=== PATIENT | male | born 1980 | race Caucasian/White ===

== ENCOUNTER 2023-01-07 09:26 | Emergency (ER) | payer OTHER, SELFPAY ==
--- NOTE | ~2023-01-07 | XR_ITS ---
EXAMINATION: XR chest 1V portable DATE: 01/07/2023 09:57 INDICATION: Shortness of breath and cough TECHNIQUE: frontal view of the chest was obtained. COMPARISON: None FINDINGS: The lungs are clear with no focal airspace opacities, pulmonary edema, pleural effusion or pneumothor ax. The cardiomediastinal silhouette is normal. Visualized bones and soft tissues are unremarkable. IMPRESSION: 1. Normal chest radiograph. Reviewed, dictated and finalized at location A. T SPEC IMPRESSION: 1. Normal chest radiograph.
[2023-01-07 09:30] VITALS: BP 175/89; PULSE 85; RESP 16; TEMP 36.6; O2SAT 97
--- NOTE | 2023-01-07 09:38 | ED.URI ---
HPI - URI/Sore Throat General Chief Complaint: Upper Respiratory Infection Stated Complaint: upper resp coughing Time Seen by Provider: 01/07/23 09:33 Source: patient and family Mode of arrival: ambulatory Limitations: no limitations History of Present Illness HPI Narrative: this is a 42-year-old male who presents with cough congestion with shortness of breath and some scattered wheezes, no fever chills no nausea vomiting does have some left-sided mid axillary rib pain with deep inspiration, with no substernal chest pain does have a cough that is productive yellow sputum no abdominal pain no flank pain no nausea vomiting no diarrhea constipation. Patient is a smoker. MD elicited complaint: cough and nasal congestion Onset (ago): week(s) Consistency: constant Severity: moderate Pain scale (0-10): 6 Description of mucous: yellow Exacerbating factors: nothing Relieving factors: nothing Related Data Allergies Allergy/AdvReac Type Severity Reaction Status Date / Time aspirin Allergy Mild Verified 03/08/10 14:25 Review of Systems Review of Systems: All systems reviewed & are unremarkable except as noted in HPI and below PMFSH Past Medical History Medical History Tobacco use Exam Const: General: no acute distress Nutritional Appearance: well nourished Orientation/consciousness: patient oriented x3 Limitations: no limitations HENMT: Head: normal to inspection Eyes: Conjunctivae: conjunctivae normal Neck: Neck: normal visual inspection and no lymphadenopathy Chest: Chest palpation & inspection: normal inspection of the chest Resp: Effort & Inspection: normal respiratory effort Auscultation: wheezes Cardio: Rate: regular rate Rhythm: regular rhythm GI: GI Palp: Yes Soft to palpation Auscultation: normal bowel sounds Psych: Affect: normal affect Course Course Emergency Course: patient received breathing treatment for his cough and wheezing, has left-sided rib pain with deep inspiration and given allergy to aspirin will give him tramadol p.o., x-ray performed and reviewed, patient also had COVID influenza and RSV Which were all negative. Chest x-ray shows no acute abnormalities and will send an inhaler and antibiotic to patient's pharmacy. Vital Signs Vital signs: Vital Signs Temperature 36.6 C 01/07/23 09:30 Pulse Rate 85 01/07/23 09:30 Respiratory Rate 16 01/07/23 09:30 Blood Pressure 175/89 H 01/07/23 09:30 Pulse Oximetry 97 11/09/23 09:30 Oxygen Delivery Room Air 01/07/23 09:30 Temperature 36.6 C 01/07/23 09:30 Pulse Rate 85 01/07/23 09:30 Respiratory Rate 16 01/07/23 09:30 Blood Pressure 175/89 H 01/07/23 09:30 Pulse Oximetry 97 01/07/23 09:30 Oxygen Delivery Room Air 01/07/23 09:30 Critical Care Time Critical Care Time Critical Care Time: No Discharge Plan Discharge Clinical Impression: Upper respiratory infection Qualifiers: URI type: unspecified URI Qualified Code(s): J06.9 - Acute upper respiratory infection, unspecified Patient Disposition: Home, Self-Care Condition: Stable Instructions: Antibiotic Form, Upper Respiratory Infection (ED) Additional Instructions: advised to take medicine as prescribed and follow-up with primary care physician within 1 to 2 weeks if symptoms persist or worsen. Prescriptions: New azithromycin [Zithromax Z-Leonel] 250 mg tablet See Rx Instructions .ROUTE .COMPLEX Qty: 6 0RF Rx Instructions: For 250 mg dose pack: take 500 mg today (day 1), then 250 mg for 4 days (days 2-5) ProAir RespiClick 90 mcg/actuation aerosol powdr breath activated 2 inh inhalation QID PRN (Reason: shortness of breath or wheezing) Qty: 1 0RF Follow-up/Referrals: UNKNOWN,DOCTOR [Primary Care Provider] - Time of Disposition: 10:34
[2023-01-07 09:39] VITALS: O2SAT 97
--- NOTE | 2023-01-07 09:48 | ECG_ITS ---
Measurements Intervals [place] Rate: 87 P: 80 [place]: 129 QRS: 80 QRSD: 79 T: 57 QT: 347 QTc: 418 Interpretive Statements SINUS RHYTHM POSSIBLE RIGHT ATRIAL ENLARGEMENT BORDERLINE ST ABNORMALITY- INFERIOR LEADS BORDERLINE ECG NO PREVIOUS ECG AVAILABLE FOR COMPARISON Electronically Signed On 01-07-2023 9:57:02 MINE SAFETY ENGINEER by Roman Robin D.O.
[2023-01-07] MEDS: traMADol HCL (*CRX) 50 MG TABLET PO (09:50)
[2023-01-07] MEDS: IPRATROPIUM 0.5 MG/ALBUTEROL SULFATE 2.5 MG AMPUL.NEB 3 ML INHALATION (09:53)
[2023-01-07 09:55] VITALS: PULSE 85; RESP 18; O2SAT 97
[2023-01-07 10:05] VITALS: PULSE 85; RESP 18; O2SAT 97
[2023-01-07 10:23] LABS: Influenza A QL RT-PCR Negative (Negative); Influenza B QL RT-PCR Negative (Negative); SARS-CoV-2 RNA PCR Negative (Negative)
[2023-01-07 10:27] LABS: RSV RNA, RT-PCR Negative (Negative)
[2023-01-07 10:35] VITALS: BP 155/89; PULSE 91; RESP 18; TEMP 36.5; O2SAT 97
== END 2023-01-07 10:40 | disposition home or self-care (01) ==
PROVIDERS: Emergency Provider Emergency Medicine
DX: J06.9 Acute upper respiratory infection, unspecified (principal); Z20.822 Contact with and (suspected) exposure to COVID-19
CPT/HCPCS: 71045; 87637; 93005; 94640; 99283; A9270

== ENCOUNTER 2023-02-26 16:33 | Emergency (ER) | payer OTHER, SELFPAY ==
[2023-02-26 16:33] VITALS: BP 176/98; PULSE 88; RESP 16; TEMP 36.9; O2SAT 97
--- NOTE | 2023-02-26 17:06 | ED.GENADULT ---
HPI - General Adult General Chief complaint: Extremity Injury, Upper Stated complaint: left arm pain/numbness x 1 month Time Seen by Provider: 02/26/23 16:59 History of Present Illness HPI narrative: Wood is a 42M with a PMH of tobacco abuse that presented to the ED with left arm and neck pain. It started 6 weeks ago. There was no fall or trauma. He feels like his whole arm hurts or goes numb. There is no weakness or paralysis. Related Data Allergies Allergy/AdvReac Type Severity Reaction Status Date / Time aspirin Allergy Mild Unknown Verified 02/26/23 16:59 Review of Systems Review of Systems: All systems reviewed & are unremarkable except as noted in HPI and below PMFSH Past Medical History Medical History Tobacco use Exam Const: General: cooperative, healthy appearing, comfortable, no acute distress, well developed, alert, awake and Physically active Orientation/consciousness: oriented to person, oriented to place and oriented to time HENMT: Head: normal to inspection, normocephalic and atraumatic Ears: hearing grossly normal bilaterally and external ears normal Face/Nose/Sinus: Normal external nose present Eyes: General: appearance normal, both eyes and all related structures Periorbital: periorbital findings normal Sclera: sclerae normal Pupils: Equal, round and reactive pupils present Neck: Neck: normal visual inspection Chest: Chest palpation & inspection: normal inspection of the chest Resp: Effort & Inspection: normal respiratory effort, able to speak in complete sentences and no respiratory distress Cardio: Jugular venous distension: no JVD Skin: General skin exam: normal color and no rashes or lesions noted Neuro: General: oriented to person, oriented to place and oriented to time Cranial nerves: Yes Equal, round and reactive pupils present Extrem: General: normal to inspection Other: Full ROM in the left shoulder. 5/5 strength throughout the left upper extremity +Spurling maneuver Psych: Mental Status: mental status grossly normal Course Course Emergency Course: -Given prednisone and a Toradol shot. Vital Signs Vital signs: Vital Signs Temperature 98.5 F 02/26/23 16:33 Pulse Rate 88 02/26/23 16:33 Respiratory Rate 16 02/26/23 16:33 Blood Pressure 176/98 H 02/26/23 16:33 Pulse Oximetry 97 02/26/23 16:33 Oxygen Delivery Room Air 02/26/23 16:33 Temperature 98.5 F 02/26/23 16:33 Pulse Rate 88 02/26/23 16:33 Respiratory Rate 16 02/26/23 16:33 Blood Pressure 176/98 H 02/26/23 16:33 Pulse Oximetry 97 02/26/23 16:33 Oxygen Delivery Room Air 02/26/23 16:33 Medical Decision Making Vital Signs Vital Signs: Vital Signs Temperature 98.5 F 02/26/23 16:33 Pulse Rate 88 02/26/23 16:33 Respiratory Rate 16 02/26/23 16:33 Blood Pressure 176/98 H 02/26/23 16:33 Pulse Oximetry 97 02/26/23 16:33 Oxygen Delivery Room Air 02/26/23 16:33 Temperature 98.5 F 02/26/23 16:33 Pulse Rate 88 02/26/23 16:33 Respiratory Rate 16 02/26/23 16:33 Blood Pressure 176/98 H 02/26/23 16:33 Pulse Oximetry 97 02/26/23 16:33 Oxygen Delivery Room Air 02/26/23 16:33 Discharge Plan Discharge Clinical Impression: Cervical radiculopathy Patient Disposition: Home, Self-Care Condition: Stable Instructions: Acute Neck Pain (ED) Prescriptions: New prednisone 50 mg tablet 50 mg PO DAILY Qty: 5 0RF Follow-up/Referrals: UNKNOWN,DOCTOR [Primary Care Provider] -
[2023-02-26] MEDS: KETOROLAC 30 MG/ML VIAL (*BKC) IM (17:31)
[2023-02-26] MEDS: predniSONE 40 MG, predniSONE 10 MG 50 MG PO (17:32)
[2023-02-26 17:45] VITALS: BP 176/98; PULSE 88; RESP 16; TEMP 36.9; O2SAT 97
== END 2023-02-26 17:45 | disposition home or self-care (01) ==
PROVIDERS: Emergency Provider Family Medicine
DX: M54.12 Radiculopathy, cervical region (principal)
CPT/HCPCS: 96372; 99283; J1885; J7512

== ENCOUNTER 2023-03-01 09:10 | Emergency (ER) | payer OTHER, SELFPAY ==
--- NOTE | ~2023-03-01 | XR_ITS ---
EXAMINATION: XR knee RT 3V DATE: 03/01/2023 09:45 INDICATION: Right knee pain. TECHNIQUE: 3 views of right knee were obtained. COMPARISON: None. FINDINGS: Bone alignment is normal. No fracture. Joint spaces are normal. No knee joint effusion. IMPRESSION: 1. Normal right knee. Reviewed, dictated and finalized at location A. RETTE FILTER INSPECTOR IMPRESSION: 1. Normal right knee.
--- NOTE | ~2023-03-01 | XR_ITS ---
EXAMINATION: XR knee LT 3V DATE: 03/01/2023 09:46 INDICATION: Left knee pain. TECHNIQUE: 3 views of left knee were obtained. COMPARISON: None. FINDINGS: Bone alignment is normal. No fracture. Joint spaces are normal. No knee joint effusion. IMPRESSION: 1. Normal left knee. Reviewed, dictated and finalized at location A. PULLER IMPRESSION: 1. Normal left knee.
[2023-03-01 09:10] VITALS: BP 166/98; PULSE 87; RESP 12; TEMP 36.1; O2SAT 100
--- NOTE | 2023-03-01 09:33 | ED.LOWEXIN ---
HPI - Extremity Injury (Lower) General Chief Complaint: Extremity Injury, Lower Stated Complaint: R & L knee pain Time Seen by Provider: 03/01/23 09:28 Source: patient Mode of arrival: ambulatory Limitations: no limitations History of Present Illness HPI Narrative: Patient is a 42-year-old male with bilateral knee pains. He woke up this morning with pain. Pain is sharp and only in the knees bilaterally. No injuries. No calf pain. Patient is able to take ibuprofen. Onset (ago): hour(s) (3) Injury: Bilateral: knee Place: home Severity: moderate Severity scale (1-10): 5 Relieving factors: nothing Exacerbating factors: nothing Context: walking Associated symptoms: able to partially bear weight and ambulatory Other symptoms: none Treatments prior to arrival: NSAIDS Related Data Allergies Allergy/AdvReac Type Severity Reaction Status Date / Time aspirin Allergy Mild Unknown Verified 03/01/23 09:17 Review of Systems Review of Systems: All systems reviewed & are unremarkable except as noted in HPI and below Constitutional: Constitutional: Reports no additional constitutional complaints Eyes: Eyes: Reports no additional eye complaints ENT: Reports system reviewed and no additional complaints, except as documented Cardiovascular: Cardiovascular: Reports no additional cardiovascular complaints Respiratory: Respiratory: Reports no additional respiratory complaints Gastrointestinal: Gastrointestinal: Reports no additional gastrointestinal complaints Genitourinary: Genitourinary: Reports no additional male genitourinary complaints Musculoskeletal: Musculoskeletal: Reports no additional musculoskeletal complaints Integumentary/Breasts: Skin/Breast: Reports system reviewed and no additional complaints, except as docu Neurologic: Reports system reviewed and no additional complaints, except as documented Psychiatric: Psychiatric: Reports no additional psychiatric complaints Endocrine: Endocrine: Reports no additional endocrine complaints Hematologic/Lymphatic: Hematologic/Lymphatic: Reports no additional hematologic/lymphatic complaints Allergic/Immunologic: Allergic/Immunologic: Reports no additional allergic/immunologic complaints PMFSH Past Medical History Medical History Tobacco use Exam Const: General: healthy appearing Nutritional Appearance: well nourished Orientation/consciousness: patient oriented x3 HENMT: Head: normal to inspection Ears: external ears normal Face/Nose/Sinus: Normal external nose present Eyes: Conjunctivae: conjunctivae normal Pupils: Equal, round and reactive pupils present EOM: EOMs intact bilaterally Neck: Neck: normal visual inspection Chest: Chest palpation & inspection: normal inspection of the chest Resp: Effort & Inspection: normal respiratory effort and not labored Auscultation: clear to auscultation bilaterally and no crackles Cardio: Rate: regular rate Rhythm: regular rhythm Heart sounds: no murmurs GI: Inspection: non-distended GI Palp: Yes Soft to palpation, No Tenderness to palpation present (GI) and No Guarding due to palpation present (GI) Auscultation: normal bowel sounds : General: Yes bladder normal to palpation Back/Spine/Pelvis: Back: no CVA tenderness Skin: General skin exam: normal color Rashes: no rashes Wounds: no wounds Neuro: General: patient oriented x3 Cranial nerves: Yes Nystagmus not present Speech: normal speech Extrem: General: normal to inspection, no clubbing, cyanosis or edema and no pedal edema Psych: Mental Status: mental status grossly normal Affect: normal affect Attitude: cooperative Course Vital Signs Vital signs: Vital Signs Temperature 36.1 C L 03/01/23 09:10 Pulse Rate 87 03/01/23 09:10 Respiratory Rate 12 03/01/23 09:10 Blood Pressure 166/98 H 03/01/23 09:10 Pulse Oximetry 100 03/01/23 09:10 Oxygen Delivery Room Air 03/01/23 09:10 Temperature 36.1 C L 03/01/23 09:10 Pul
[2023-03-01] MEDS: KETOROLAC (*BKC) 60 MG/2 ML VIAL IM (09:40)
== END 2023-03-01 10:04 | disposition home or self-care (01) ==
PROVIDERS: Emergency Provider Emergency Medicine
DX: M25.561 Pain in right knee (principal); M25.562 Pain in left knee
CPT/HCPCS: 73562; 96372; 99284; J1885

== ENCOUNTER 2023-03-30 10:04 | Outpatient (CLI) | payer OTHER, SELFPAY ==
--- NOTE | ~2023-03-30 | XR_ITS ---
Cervical Spine: AP, lateral, open-mouth views Clinical History: Pain Findings: There is reversal of the normal cervical lordosis. The vertebral bodies and posterior [place] ents appear intact. There is mild degenerative disc narrowing at C6-C7.. Pre-vertebral soft tissues a re unremarkable. Impression: Mild reversal of the normal cervical lordosis. Mild degenerative disc narrowing at C6-C7. Reviewed, dictated and finalized at [facility]. IN EXTERMINATOR Impression: Mild reversal of the normal cervical lordosis. Mild degenerative disc narrowing at C6-C7.
[2023-03-30 10:17] LABS: Basophils Absolute Auto 0.06 K/mm3 (0.00-0.10); Basophils Percent Auto 0.5 % (0.0-1.0); Eosinophils Absolute Auto 0.36 K/mm3 (0.02-0.50); Eosinophils Percent Auto 3.2 % (1.0-6.0); Hematocrit 46.5 % (40.0-54.0); Hemoglobin 15.3 g/dL (14.0-18.0); Immature Granulocyte Absolute 0.05 K/mm3 (0.00-0.00); Immature Granulocyte Percent A 0.4 % (0.0-0.0); Lymphocytes Absolute Auto 3.58 K/mm3 (1.10-4.50); Lymphocytes Percent Auto 31.9 % (18.0-42.0); Mean Corpuscular HGB Conc 32.9 g/dL (32.0-36.0); Mean Corpuscular Hemoglobin 30.2 pg (27.0-31.0); Mean Corpuscular Volume 91.7 fL (78.0-102.0); Monocytes Absolute Auto 0.75 K/mm3 (0.10-0.90); Monocytes Percent Auto 6.7 % (2.0-11.0); Neutrophils Absolute Auto 6.4 K/mm3 (1.7-7.2); Neutrophils Percent Auto 57.3 % (50.0-70.0); Platelet Count Result 278 K/mm3 (150-420); Red Blood Count 5.07 M/mm3 (4.70-6.10); Red Cell Distribution Width 12.8 % (11.6-14.4); White Blood Count 11.2 K/mm3 (4.8-10.8)
[2023-03-30 11:12] LABS: Alanine Aminotransferase 31 U/L (16-63); Albumin Level 3.5 g/dL (3.4-5.0); Alkaline Phosphatase 74 U/L (46-116); Anion Gap 7 mmol/L (8-16); Bilirubin,Total 0.2 mg/dL (0.00-1.00); Blood Urea Nitrogen 16 mg/dL (7-18); Calcium 8.3 mg/dL (8.5-10.1); Carbon Dioxide 30 mmol/L (21-32); Chloride 104 mmol/L (98-108); Cholesterol 182 mg/dL (0-200); Estimated Glomerular Filt Rate > 60; Glucose 86 mg/dL (70-99); HDL Direct 53 mg/dL (40-60); LDL Cholesterol Calculated 103 mg/dL (<130); Osmolality Calculated 292 mOsm/kg (285-295); Potassium 4.9 mmol/L (3.5-5.1); Sodium 141 mmol/L (136-145); Total Protein 6.5 g/dL (6.4-8.2); Triglycerides 129 mg/dL (0-150)
[2023-03-30 11:21] LABS: Aspartate Amino Transferase 22 U/L (15-37)
== END 2023-03-30 10:05 | disposition home or self-care (01) ==
LOC: CHSLAB 10:06
PROVIDERS: PCP Family Medicine; Visit Provider Family Medicine
DX: Z00.00 Encounter for general adult medical examination without abnormal findings (principal); M54.12 Radiculopathy, cervical region; M48.02 Spinal stenosis, cervical region
CPT/HCPCS: 36415; 72040; 80053; 80061; 85025

== ENCOUNTER 2023-04-12 03:22 | Inpatient (IN) | payer OTHER, SELFPAY ==
[2023-04-12] VITALS (31 sets, daily range): BP systolic 117–179; BP diastolic 5–107; PULSE 61–132; RESP 15–26; TEMP 35.7–37.7; O2SAT 94–100; BMI 25.9
--- NOTE | 2023-04-12 | ECHO_ITS ---
Patient Info Name: Wood Lainez Age: 43 years : 1980 Gender: Male Ht: 67 in Wt: 177 lbs BSA: 1.97 m2 HR: 71 bpm BP: 145 / 76 mmHg Heart Rhythm: Sinus Rhythm Technical Quality: Fair Exam Date: 04/12/2023 10:25 AM Exam Location: Echo Lab Patient Status: Inpatient Admit Date: 04/12/2023 Staff Ordering Physician: [facility] Erecting Crane Operator: Meagan Sorto RDCS Attending Provider: Dale [facility] Referring Physician: Stuart Callahan MD; Exam Type: CA echo dop color flow w con Study Info Indications - STEMI Complete two-dimensional, color flow and Doppler transthoracic echocardiogram is performed with contrast to opacify the left ventricle and to improve the deliniation of the left ventricle endocardial borders. Contrast/Agitated Saline Contrast/Ag. Saline: Definity Amount: 2.00 ml Administered By: Meagan Sorto RDCS Existing IV Access: Yes IV Access Condition: patent with no signs of infiltration Summary 1. Patient intubated, definity contrast used to improve exam quality. 2. Normal left ventricular size and overall systolic function with ejection fraction 55-60%. 3. Akinesis of the inferior segment. 4. Normal appearing aortic and mitral valve. 5. No pericardial effusion. Left Ventricle Left ventricular chamber dimension is normal. Left ventricular systolic function is normal, estimated at 55-60%. The left ventricular diastolic function is grade I diastolic dysfunction. Right Ventricle Right ventricular chamber dimension is normal. Left Atria Left atrial chamber dimension is normal. Right Atria Right atrial chamber dimension is normal. Aortic Valve The aortic valve is normal. Pulmonic Valve The pulmonic valve is not well visualized. Mitral Valve The mitral valve has normal leaflets. Tricuspid Valve The tricuspid valve leaflets are normal. Pericardium/Pleural The pericardium appears normal. Aorta The aortic root size at the sinus of Valsalva is normal. Left Ventricular Outflow Tract Name Value Normal LVOT 2D LVOT Diameter 1.97 cm LVOT Doppler LVOT Peak Gradient 2 mmHg LVOT Mean Gradient 1 mmHg LVOT VTI 13.41 cm LVOT VTI/AV VTI Ratio 0.72 LVOT Stroke Volume 41.01 ml LVOT CO 3.59 l/min LVOT CI 1.83 L/min/m2 Pulmonic Valve Name Value Normal RVOT Doppler RVOT Peak Gradient 3 mmHg PV Doppler PV Peak Gradient 4 mmHg Mitral Valve Name Value Normal
--- NOTE | ~2023-04-12 | XR_ITS ---
Portable chest x-ray Comparison: 04/13/2023 Clinical History: Intubation Findings: There is minimal haziness right lung base, nonspecific. Left lung clear. Support tubes hav e been removed since prior exam. Cardiomediastinal silhouette is stable. Bones and soft tissues are unremarkable. Impression: Minimal haziness right lung base, nonspecific. Correlate for minimal pulmonary edema/atelectasis, or possibly developing pneumonia. Reviewed, dictated and finalized at location . UAGE ARTS TEACHER Impression: Minimal haziness right lung base, nonspecific. Correlate for minimal pulmonary edema/atelectasis, or possibly developing pneumonia.
--- NOTE | ~2023-04-12 | XR_ITS ---
Portable chest x-ray Comparison: 04/12/2023 Clinical History: Respiratory failure Findings: Endotracheal tube and NG tube are in place. Lungs remain clear. Cardiomediastinal silhoue tte is stable. Bones and soft tissues are unremarkable. Impression: Clear lungs. Support tubes, as above. Reviewed, dictated and finalized at location . ICAL VETERINARIAN Impression: Clear lungs. Support tubes, as above.
--- NOTE | ~2023-04-12 | XR_ITS ---
Portable chest x-ray Comparison: 04/14/2023 Clinical History: Respiratory failure Findings: Lungs are clear, without focal consolidation or pleural effusion. Cardiomediastinal silho uette is stable. Bones and soft tissues are unremarkable. Impression: Clear lungs. Reviewed, dictated and finalized at [facility]. TENANCE SHOP LABORER Impression: Clear lungs.
--- NOTE | ~2023-04-12 | XR_ITS ---
Portable chest x-ray Comparison: 01/07/2023 Clinical History: Chest pain Findings: Lungs are clear, without focal consolidation or pleural effusion. Cardiomediastinal silho uette is stable. Bones and soft tissues are unremarkable. Impression: Normal chest. Reviewed, dictated and finalized at [facility]. AREA SUPERVISOR Impression: Normal chest.
--- NOTE | ~2023-04-12 | XR_ITS ---
Supine and upright views of the abdomen Clinical history: NG tube placement Findings: NG tube in place, tip in the stomach near the gastric antrum. Cholecystectomy clips are pre sent. Bowel gas pattern is nonspecific. No evidence for obstruction or free air. No abnormal mass les ion or calcification is seen. Osseous structures are intact. Impression: NG tube in place, as above. Reviewed, dictated and finalized at location . ANTY COORDINATOR Impression: NG tube in place, as above.
--- NOTE | ~2023-04-12 | XR_ITS ---
Portable chest x-ray Comparison: 04/12/2023 at 4:04 AM Clinical History: Tube placement Findings: Endotracheal tube and NG tube are in satisfactory positions. Lungs are clear, without foca l consolidation or pleural effusion. Cardiomediastinal silhouette is stable. Bones and soft tissues are unremarkable. Impression: Support tubes, as above. Clear lungs. Reviewed, dictated and finalized at location M. TESTER Impression: Support tubes, as above. Clear lungs.
--- NOTE | 2023-04-12 03:06 | ECG_ITS ---
Measurements Intervals [place] Rate: 55 P: 72 [place]: 158 QRS: 74 QRSD: 85 T: 101 QT: 457 QTc: 440 Interpretive Statements SINUS BRADYCARDIA INFERIOR ST SEGMENT ELEVATIONS CONSISTENT WITH INJURY PATTERN ABNORMAL ECG COMPARED TO ECG 01/07/2023 09:47:51 SINUS BRADYCARDIA NOW PRESENT T-WAVE ABNORMALITY NOW PRESENT Electronically Signed On 04-12-2023 8:42:41 MACHINE TOOL ELECTRICIAN by Jose Jackson M.D.
--- NOTE | 2023-04-12 03:35 | ECG_ITS ---
Measurements Intervals [place] Rate: 47 P: 77 AL: 154 QRS: 83 QRSD: 88 T: 109 QT: 491 QTc: 437 Interpretive Statements SINUS BRADYCARDIA ST AND T ABNORMALITY COMPATIBLE WITH ACUTE INFERIOR POSTERIOR CURRENT OF INJURY ABNORMAL ECG COMPARED TO ECG 04/12/2023 03:48:09 NO SIGNIFICANT CHANGE Electronically Signed On 04-12-2023 15:03:37 FACULTY I ON CALL MEDICAL ASSISTANT by Leonel Alcazar M.D.
--- NOTE | 2023-04-12 03:37 | ECG_ITS ---
Measurements Intervals [place] Rate: 60 P: 72 PA: 159 QRS: 74 QRSD: 81 T: 103 QT: 464 QTc: 466 Interpretive Statements SINUS RHYTHM WITH SINUS ARRHYTHMIA ST ELEVATION, CONSIDER INFERIOR INJURY [MARKED ST ELEVATION W/O NORMALLY INFLECTED T- WAVE IN II/aVF] ACUTE CT ABNORMAL ECG COMPARED TO ECG 04/12/2023 03:37:00 NO DIFFERENCE Electronically Signed On 04-12-2023 15:03:09 LABORER STORES by Leonel Alcazar M.D.
[2023-04-12 03:45] LABS: Basophils Absolute Auto 0.1 K/mm3 (0.0-0.1); Basophils Percent Auto 0.8 % (0.2-1.2); Eosinophils Absolute Auto 0.3 K/mm3 (0-0.3); Eosinophils Percent Auto 2.7 % (0-4.4); Hematocrit 44.6 % (42.0-52.0); Hemoglobin 14.5 g/dL (14.0-18.0); Immature Granulocyte Absolute 0.03 K/mm3 (0.00-0.031); Immature Granulocyte Percent A 0.3 % (0-0.5); Lymphocytes Absolute Auto 3.92 K/mm3 (0.9-3.2); Lymphocytes Percent Auto 37.1 % (18.3-44.2); Mean Corpuscular HGB Conc 32.5 g/dl (32-36); Mean Corpuscular Hemoglobin 30.2 pg (26-34); Mean Corpuscular Volume 92.9 fl (80-100); Mean Platelet Volume 10.5 fl (7.4-10.4); Monocytes Absolute Auto 0.7 K/mm3 (0.1-0.6); Monocytes Percent Auto 6.8 % (2.6-8.5); Neutrophils Absolute Auto 5.5 K/mm3 (1.3-6.7); Neutrophils Percent Auto 52.3 % (45.5-73.1); Platelet Count Result 234 k/mm3 (150-375); Red Cell Distribution Width 12.9 % (11.5-14.5); White Blood Count 10.6 K/mm3 (4.5-10.0)
--- NOTE | 2023-04-12 03:53 | ECG_ITS ---
Measurements Intervals [place] Rate: 63 P: 65 [place]: 157 QRS: 69 QRSD: 82 T: 98 QT: 453 QTc: 465 Interpretive Statements POSTERIOR/15 LEAD ECG PERFORMED NORMAL SINUS RHYTHM ST AND T ABNORMALITY CONSISTENT WITH ACUTE INFERO POSTERIOR INJURY PATTERN ABNORMAL ECG COMPARED TO ECG 04/12/2023 03:25:51 TRACING IS CONTINUING TO BE COMPATIBLE WITH ACUTE ST-ELEVATION OR Electronically Signed On 04-12-2023 15:02:48 AIRCRAFT MAGNETO MECHANIC by Leonel Alcazar M.D.
[2023-04-12 03:55] LABS: Alanine Aminotransferase 22 U/L (6-50); Albumin Level 3.6 g/dL (3.5-5.1); Alkaline Phosphatase 69 U/L (38-126); Anion Gap 7 mmol/L (8-16); Aspartate Amino Transferase 27 U/L (17-59); Bilirubin,Total 0.3 mg/dL (0.2-1.3); Blood Urea Nitrogen 22 mg/dL (9-20); Carbon Dioxide 24 mmol/L (22-30); Chloride 106 mmol/L (98-107); Cholesterol 134 mg/dL (0-200); Estimated CRCL calculation 71 ml/min; Estimated Glomerular Filt Rate > 60; Glucose 164 mg/dL (65-110); HDL Direct 39 mg/dL; Potassium 3.7 mmol/L (3.4-5.0); Prothrombin Time 13.4 Seconds (11.1-14.7); Sodium 137 mmol/L (137-145); Triglycerides 131 mg/dL (<150)
[2023-04-12 03:56] LABS: Partial Thromboplastin Time 26.4 SECONDS (22.3-36.8)
[2023-04-12] MEDS: LORazepam INJ (*CRX) 2 MG/ML VIAL 1 MG IV PUSH (04:05)
[2023-04-12 04:06] LABS: LDL Cholesterol Direct 84 mg/dL
--- NOTE | 2023-04-12 04:24 | ECG_ITS ---
Measurements Intervals [place] Rate: 53 P: 77 [place]: 155 QRS: 81 QRSD: 84 T: 107 QT: 487 QTc: 460 Interpretive Statements SINUS BRADYCARDIA ST ELEVATION, CONSIDER INFERIOR INJURY [MARKED ST ELEVATION W/O NORMALLY INFLECTED T- WAVE IN II/aVF] ACUTE TX ABNORMAL ECG COMPARED TO ECG 04/12/2023 03:25:51 NO SIGNIFICANT CHANGES Electronically Signed On 04-12-2023 8:43:19 POWERHOUSE OPERATOR by Jose Jackson M.D.
[2023-04-12 04:41] LABS: Troponin I 0.325 ng/mL (0.000-0.034)
--- NOTE | 2023-04-12 04:42 | ED.GENADULT ---
HPI - General Adult General Chief complaint: Chest Pain Stated complaint: chest pain History of Present Illness HPI narrative: 43-year-old male presenting with chest pain. Chest pain started at 2:00 a.m. Described as a pressure in the center of his chest that is non-radiating. Not associated with diaphoresis/vomiting/exertion. Patient admits to meth use earlier today. Related Data Allergies Allergy/AdvReac Type Severity Reaction Status Date / Time aspirin Allergy Mild Unknown Verified 03/30/23 07:31 [facility] Past Medical History Medical History Amphetamine abuse Tobacco use Social History Social History Smoking status: Current every day smoker Exam Narrative: APPEARANCE: No apparent distress. Head: atraumatic. EYES: EOMI, NOSE: Atraumatic NECK: Trachea midline RESPIRATORY: No increased rate of breathing, CTAB CARDIOVASCULAR: Bradycardic, no peripheral edema ABDOMINAL: Non-distended MUSCULOSKELETAl: No obvious deformities NEURO: Alert. Moving 4/4 extremities SKIN:: Warm, dry. Normal color PSYCHIATRIC: Normal affect Course Vital Signs Vital signs: Vital Signs Temperature 97.6 F 04/12/23 03:22 Pulse Rate 61 04/12/23 03:22 Respiratory Rate 20 04/12/23 03:22 Blood Pressure 140/87 04/12/23 03:22 Pulse Oximetry 99 04/12/23 03:22 Temperature 97.6 F 04/12/23 03:22 Pulse Rate 71 04/12/23 04:50 Respiratory Rate 17 04/12/23 04:50 Blood Pressure 145/76 H 04/12/23 04:50 Pulse Oximetry 99 04/12/23 04:58 Oxygen Delivery Room Air 04/12/23 04:58 Medical Decision Making [facility] Narrative Medical decision making narrative: -Course: 43-year-old male presenting ED for chest pain. EKG was sent from ambulance service which showed possible inferior stemi. clay processing labourer was activated en route. Case was discussed with Int- Cardiology- Dr. Luciano. Repeat EKG on patient arrival showed ST depressions in multiple leads and questionable ST elevation in III. Case and EKGS were discussed with Dr. Luciano and no clear criteria for STEMI that time. Given the patient's meth use he was treated for cocaine(amphetamine) chest pain with the plan for serial EKGS. Repeat EKG at 4:[address] elevation in 3 and AVF with reciprocal changes. Patient still having chest pain. Dr. Luciano has agreed to take the patient to the chemical processing laborer. Patient is allergic to aspirin. Given brillinta and Heparin in ED. -DDX includes but is not limited to: ACS, amphetamine induced chest pain, pneumonia, PE, pneumothorax -Co-morbidities complicating care: meth use, tobacco use, aspirin allergy -Social determinants of health: released from [facility] 2 years ago on parole -Independent interpretation of studies: CBC normal. Metabolic panel unremarkable. Initial troponin 0.325 chest x-ray unremarkable. -Discussion of Management/Consultants:Dr. Luciano -Interventions: 1 mg Ativan, heparin bolus, [id number] -Shared decision making / Disposition: Taken to chemical processing laborer. Vital Signs Vital Signs: Vital Signs Temperature 97.6 F 04/12/23 03:22 Pulse Rate 61 04/12/23 03:22 Respiratory Rate 20 04/12/23 03:22 Blood Pressure 140/87 04/12/23 03:22 Pulse Oximetry 99 04/12/23 03:22 Temperature 97.6 F 04/12/23 03:22 Pulse Rate 71 04/12/23 04:50 Respiratory Rate 17 04/12/23 04:50 Blood Pressure 145/76 H 04/12/23 04:50 Pulse Oximetry 99 04/12/23 04:58 Oxygen Delivery Room Air 04/12/23 04:58 Lab Data 04/12/23 03:30 04/12/23 03:30 Labs: Lab Results 04/12/23 Range/Units 03:30 WBC 10.6 H (4.5-10.0) K/mm3 RBC 4.80 (4.6-6.20) M/mm3 Hgb 14.5 (14.0-18.0) g/dL Hct 44.6 (42.0-52.0) % MCV 92.9 (80-100) fl MCH 30.2 (26-34) pg MCHC 32.5 (32-36) g/dl RDW 12.9 (11.5-14.5) % Plt Count 234 (150-375) k/mm3 MPV 10.5 H (7.4-10.4) fl Immature Gran % (Auto)
--- NOTE | 2023-04-12 04:45 | PC.NURSE ---
0442 Stemi alert activated per Dr. Luciano and Dr. Callahan [phone] Verena sent to phlebotomy lab assistant team & [phone] paged overhead [phone] [facility] en route for stand-by [phone] All phlebotomy lab assistant team members responded to verena
[2023-04-12] MEDS: HEPARIN SODIUM 5,000 UNITS/ML VIAL 4000 UNITS IV PUSH (04:47)
[2023-04-12] MEDS: TICAGRELOR 90 MG TABLET 180 MG PO (04:47)
--- NOTE | 2023-04-12 07:13 | PM.IMHP ---
H&P: HPI History of Present Illness Date/Time: 04/12/23 07:13 Chief Complaint: Chest pain Narrative: This is a 43 year old male with tobacco use who presented with chest pain. He was initially an EMS STEMI alert, however, EKG upon arrival to [place] [facility] did not show STEMI. EKG showed sinus rhythm with anterolateral ST depressions. Posterior EKG was obtained, which did not show STEMI, therefore, close serial EKGs were obtained, which then did show inferior ST elevations. Therefore, recyclable materials sorter activated for emergent cardiac catheterization. Patient had admitted to meth use earlier. Reports allergy to ASA - reportedly gets hives. Other history could not be obtained as patient intubated during cardiac catheterization. History obtained from ER team. Review of Systems Review of Systems: ROS unobtainable: Yes unobtainable due to endotracheal tube PMFSH Past Medical History Medical History Amphetamine abuse Tobacco use Social History Social History Smoking status: Current every day smoker Meds Home Medications and Allergies Home Medications Medication Instructions Recorded Confirmed Type meloxicam 15 mg tablet 15 mg PO DAILY #30 tabs 03/01/23 03/30/23 Rx prednisone 50 mg tablet 50 mg PO DAILY #5 tabs 03/30/23 03/30/23 Rx Allergies Allergy/AdvReac Type Severity Reaction Status Date / Time aspirin Allergy Mild Unknown Verified 03/30/23 07:31 Vital Signs Vital Signs - 24 hr 04/12/23 03:22 04/12/23 03:32 04/12/23 03:33 Temperature 36.4 C Pulse Rate 61 97 64 Respiratory Rate 20 15 Blood Pressure 140/87 141/91 H Pulse Oximetry 99 100 Oxygen Delivery 04/12/23 04:50 04/12/23 04:58 Temperature Pulse Rate 71 Respiratory Rate 17 Blood Pressure 145/76 H Pulse Oximetry 98 99 Oxygen Delivery Room Air Exam Const: General: no acute distress HENMT: Other: OETT in place Resp: Effort & Inspection: normal respiratory effort Other: On mechanical ventilation Cardio: Rate: regular rate Rhythm: regular rhythm Skin: General skin exam: normal color H&P: Results Labs Labs: Short CBC 04/12/23 Range/Units 03:30 WBC 10.6 H (4.5-10.0) K/mm3 Hgb 14.5 (14.0-18.0) g/dL Hct 44.6 (42.0-52.0) % Plt Count 234 (150-375) k/mm3 BMP 04/12/23 03:30 Sodium 137 Potassium 3.7 Chloride 106 Carbon Dioxide 24 BUN 22 H Creatinine 1.10 Glucose 164 H Calcium 9.0 Cardiac Enzymes 04/12/23 Range/Units 03:30 Troponin I 0.325 H* (0.000-0.034) ng/mL Liver Function 04/12/23 Range/Units 03:30 Total Bilirubin 0.3 (0.2-1.3) mg/dL AST 27 (17-59) U/L ALT 22 (6-50) U/L Alkaline Phosphatase 69 (38-126) U/L Albumin 3.6 (3.5-5.1) g/dL Assessment and Plan Assessment and plan (1) ST elevation [place] (STEMI): Code(s): I21.3 - ST elevation (STEMI) myocardial infarction of unspecified site Status: Acute Assessment and Plan: Emergent cardiac catheterization showed 100% complete occlusion of the mid-distal RCA. During the diagnostic portion of the case, patient kept thrashing around, despite having 3 straps across his legs and both hands in wrist restraints, he kept moving his arms and legs around, at times requiring 2 recyclable materials sorter staff members to hold him down. It was difficult to proceed with cardiac cath in this situation. Given this, we called ER for intubation. Patient intubated and OG tube place by Dr. Callahan. We then proceeded with PCI of the RCA, with successfully PCI of the mid-distal RCA with a 4.0mm x 35mm FLAKITO. LVEDP is 28mmHg. Admit to ICU. Patient has a reported ASA allergy (reportedly gets hives), therefore, we did not give him any ASA. He will need to undergo ASA desensitization. If this cannot be done at [facility], then he will need to be transferred to an institution where this can be done. Since we cannot give him ASA at this time, will do Inte
--- NOTE | 2023-04-12 07:26 | ADMGEN ---
This patient, Wood Lainez, was admitted to Intensive Care Unit-10. Patient/family oriented to hospital policies and general routines including ID bracelet, bed and alarms, visiting hours, pain management, procedures, bathroom and other care routines, personal items, smoking policy, room service/diet, and visiting hours. Information on how to activate the Rapid Response Team has been discussed. Patient/Family are encouraged to report perceived risks to care and to ask questions if they do not understand what they are told or what they should do.
--- NOTE | 2023-04-12 07:30 | PC.NURSE ---
Patient admitted with an ankle monitor on the left leg.
--- NOTE | 2023-04-12 07:32 | ECG_ITS ---
Measurements Intervals [place] Rate: 80 P: 80 LA: 135 QRS: 68 QRSD: 86 T: 85 QT: 416 QTc: 480 Interpretive Statements SINUS RHYTHM POSSIBLE LEFT ATRIAL ENLARGEMENT [-0.1mV P WAVE IN V1/V2] NONSPECIFIC ST & T-WAVE ABNORMALITY ABNORMAL ECG WARNING: DATA QUALITY MAY AFFECT INTERPRETATION COMPARED TO ECG 04/12/2023 04:28:56 SINUS RHYTHM NOW PRESENT T-WAVE ABNORMALITY NOW PRESENT Electronically Signed On 04-12-2023 8:45:57 ASSISTANT TODDLER TEACHER by Jose Jackson M.D.
--- NOTE | 2023-04-12 07:32 | ED.PROCEDURE ---
Procedures Intubation Intubation Date: 04/12/23 A pre-procedural Time-Out was completed immediately before starting the procedure and confirmed: Patient Identification, Site, Procedure, Patient Position and the Availability of Requisite Equipment: Yes Sedative: etomidate Mg given: 20 Paralytic: rocuronium Mg given: 100 Laryngoscope: Alvarez ET tube size: 7.5 Tube secured depth (cm): 24 Tube secured location: lips Tube placement confirmation: visualized tube passing through cords, equal breath sounds bilaterally and confirmation by capnometry Patient tolerated procedure: well Intubation complications: none
--- NOTE | 2023-04-12 07:33 | WPDMODSED ---
Moderate Sedation Note-Pt Data Patient Data Diagnosis: Inferior STEMI Present Complaint: Chest pain Procedure to be performed/Plan: Primary PCI Allergies Allergy/AdvReac Type Severity Reaction Status Date / Time aspirin Allergy Mild Unknown Verified 03/30/23 07:31 Home Medications Medication Instructions Recorded Confirmed Type meloxicam 15 mg tablet 15 mg PO DAILY #30 tabs 03/01/23 03/30/23 Rx prednisone 50 mg tablet 50 mg PO DAILY #5 tabs 03/30/23 03/30/23 Rx Current Medications: Active Medications Atorvastatin Calcium (Atorvastatin 40 Mg Tablet) 80 mg PO DAILY CHRISTY Fentanyl Citrate (Fentanyl 2,500 Mcg/Ns 250 Ml) 2,500 mcg in 250 mls @ 2.5 mls/hr IV CONT .Q72H CHRISTY; Protocol Midazolam HCl (Versed 100 Mg/Ns 100 Ml) 100 mg in 100 mls @ 1 mls/hr IV CONT .Q72H CHRISTY; Protocol Sodium Chloride (Normal Saline Iv) 1,000 mls @ 125 mls/hr IV CONT .Q8H ONE Stop: 04/12/23 15:13 Eptifibatide (Integrilin) 75 mg in 100 mls @ 12.896 mls/hr IV CONT .Q7H46M CHRISTY Perflutren Lipid Microsphere (Perflutren Lipid Microspheres 1.5 Ml Vial Diluted To 10 Ml Total Volume) 0 ml IV PUSH ONCE PRN; Protocol PRN Reason: adequate visualization Stop: 04/15/23 07:16 Ticagrelor (Ticagrelor 90 Mg Tablet) 90 mg PO Q12HR CHRISTY Sedation/Anesthesia: No previous sedation/anesthesia problems (including family history). [facility] Past Medical History Medical History Amphetamine abuse Tobacco use Social History Social History Smoking status: Current every day smoker Mod Sed Physical Exam Physical Exam Pre Procedural Exam: Normal: Airway, Heart Rate, Heart Rhythm, Abdomen, Extremities and Skin and Variation: Appearance (Mental status appears altered, not following commands) Hours since solid foods: 0 Hours since liquid intake: 0 Mallampati Classification: class III Internal Medicine - PN: Obj Da Vital Signs Vital Signs: Vital Signs - 24 hr 04/12/23 03:22 04/12/23 03:32 04/12/23 03:33 Temperature 36.4 C Pulse Rate 61 97 64 Respiratory Rate 20 15 Blood Pressure 140/87 141/91 H Pulse Oximetry 99 100 Oxygen Delivery 04/12/23 04:50 04/12/23 04:58 Temperature Pulse Rate 71 Respiratory Rate 17 Blood Pressure 145/76 H Pulse Oximetry 98 99 Oxygen Delivery Room Air Meds/Results Medications: Active Medications Generic Name Dose Route Start Last Admin Trade Name Freq PRN Reason Stop Dose Admin Atorvastatin Calcium 80 mg 04/12/23 09:00 Atorvastatin 40 Mg Tablet PO DAILY CHRISTY Fentanyl Citrate 2,500 mcg in 250 mls @ 2.5 mls/hr 04/12/23 06:15 Fentanyl 2,500 Mcg/Ns 250 Ml IV CONT .Q72H CHRISTY Protocol 25 MCG/HR Midazolam HCl 100 mg in 100 mls @ 1 mls/hr 04/12/23 06:15 Versed 100 Mg/Ns 100 Ml IV CONT .Q72H CHRISTY Protocol 1 MG/HR Sodium Chloride 1,000 mls @ 125 mls/hr 04/12/23 07:14 Normal Saline Iv IV CONT 04/12/23 15:13 .Q8H ONE Eptifibatide 75 mg in 100 mls @ 12.896 mls/hr 04/12/23 07:20 Integrilin IV CONT .Q7H46M CHRISTY 2 MCG/KG/MIN Perflutren Lipid Microsphere 0 ml 04/12/23 07:16 Perflutren Lipid Microspheres 1.5 Ml Vial Diluted To 10 Ml Total Volume IV PUSH 04/15/23 07:16 ONCE PRN adequate visualization Protocol Ticagrelor 90 mg 04/12/23 21:00 Ticagrelor 90 Mg Tablet PO Q12HR [facility] Radiology Results: ITS Impressions Chest X-Ray 04/12/23 05:56 Impression: Normal chest. Labs 04/12/23 03:30 04/12/23 03:30 Labs: Laboratory Results - last 24 hr 04/12/23 03:30 WBC 10.6 H RBC 4.80 Hgb 14.5 Hct 44.6 MCV 92.9 MCH 30.2 MCHC 32.5 RDW 12.9 Plt Count 234 MPV 10.5 H Immature Gran % (Auto) 0.3 Neut % (Auto) 52.3 Lymph % (Auto) 37.1 [place] % (Auto) 6.8 Eos % (Auto) 2.7 Baso % (Auto) 0.8 Lymph # (Auto) 3.92 H [place] # (Auto) 0.7 H Eos # (Auto) 0.3 Baso # (Auto) 0.1 Abs Immat Gra
--- NOTE | 2023-04-12 07:34 | WPDCARDPROC ---
Cardiac Cath Procedure Note Date of procedure:: 04/12/23 Performing physician:: CATHETERIZATION LABORATORY REPORT Procedure Date: 04/12/2023 Mobile Phlebotomist: Dale Luciano M.D., [facility] Referring Physician: Stuart Callahan MD ([facility]) Anesthesia: Versed and Fentanyl were ordered and given in my presence at 05:47, procedure ended at 07:01. Supervision of nurse monitored moderate sedation with Versed and Fentanyl was provided for 74 minutes. Total of Versed 1mg and Fentanyl 25mcg were administered by the Public Health Dietitian RN Harika Dumont, and the IV Versed and Fentanyl drips were started after patient was intubated. Pre-op Diagnosis: Inferior STEMI Post-op Diagnosis: 1. 100% complete occlusion of the mid-distal RCA s/p successful PCI with 4.0mm x 35mm FLAKITO. 2. LVEDP is 28mmHg Procedure(s): 1. Moderate sedation 2. Ultrasound-guided access of the right common femoral artery 3. Coronary angiography 4. Left heart cath 5. IVUS of RCA 6. PCI of the RCA with FLAKITO x 1, with pre and post dilatation 7. Angioseal closure of the right common femoral artery Access Site: Right common femoral artery Brief History and Clinical Indications: Patient is a 43 year old male with tobacco use who presented with chest pain. He was initially an EMS STEMI alert, however, EKG upon arrival to [facility] did not show STEMI. EKG showed sinus rhythm with anterolateral ST depressions. Posterior EKG was obtained, which did not show STEMI, therefore, close serial EKGs were obtained, which then did show inferior ST elevations. Therefore, label pinker activated for emergent cardiac catheterization. Patient had admitted to meth use earlier. Reports allergy to ASA - reportedly gets hives. Findings: LEFT HEART CATHETERIZATION FINDINGS: 1. Left main: The left main coronary artery is widely patent without any significant obstructive disease. 2. Left anterior descending: The proximal LAD has mild disease. Remainder of the LAD has luminal irregularities. 3. Left circumflex: The proximal-mid LCX has mild diffuse disease. Remainder of LCX has luminal irregularities. OM branch has mild disease in the mid portion. 4. Right coronary artery: The RCA is the dominant vessel. Mild disease in the proximal and mid portions. The mid to distal RCA is 100% occluded. 5. Left ventricle: A. End-diastolic pressure 28 mmHg. B. LV gram deferred. C. No significant gradient across aortic valve on catheter pullback. Description of Procedure and PCI: Informed consent signed and placed in the chart. Patient transferred to label pinker room. Prepped and draped in usual sterile fashion. 2% lidocaine in right groin area. Micropuncture needle used to access right common femoral artery with Seldinger technique under fluoroscopic and ultrasound guidance. J wire advanced, micropuncture cannula placed. Right iliofemoral angiogram performed, access confirmed and micropuncture cannula exchanged for 6-FR sheath. 5F FL 4 diagnostic catheter engaged Left Main Coronary Artery. 5F FR 4 diagnostic catheter engaged Right Coronary Artery. Multiple orthogonal angiogram obtained and reviewed 5F FR 4 diagnostic catheter crossed aortic valve to obtain LVEDP, LV angiogram deferred. During the diagnostic portion of the case, patient kept thrashing around, despite having 3 straps across his legs and both hands in wrist restraints, he kept moving his arms and legs around, at times requiring 2 label pinker staff members to hold him down. It was difficult to proceed with cardiac cath in this situation. Given this, we called ER for intubation. Patient intubated and OG tube placed by Dr. Callahan. Patient started on IV sedation drips. We then proceeded with PCI of the RCA Angiomax was used for anticoagulation. 6F FR 4 guide catheter was used to intubate the RCA. 0.014 [place] coronary wire was passed in to the distal RCA. The lesion was pre-dilated with a 2.5mm x 15mm balloon inflated to high MIKI. Multiple balloon inflations done. This restore
[2023-04-12] MEDS: FENTANYL 2,500MCG/NS250ML(*CRX 2,500 MCG/250 ML BAG 10 MCG IV CONT (08:18)
[2023-04-12] MEDS: MIDAZOLAM 100MG/NS 100ML(*CRX) 100 MG/100 ML BAG IV CONT (08:19)
[2023-04-12] MEDS: PROPOFOL IV EMULSION 100 ML 7.25 MG IV CONT (08:19)
[2023-04-12] MEDS: SODIUM CHLORIDE 0.9% IV 1,000 ML 125 ML IV CONT (08:20)
[2023-04-12] MEDS: EPTIFIBATIDE 0.75 MG/ML 75 MG/100 ML VIAL 12.9 MG IV CONT ×3 (08:20→20:48)
[2023-04-12] MEDS: ATORVASTATIN 40 MG TABLET 80 MG PO (08:31)
[2023-04-12] MEDS: MINERAL OIL/WHITE PETROLATUM OINTMENT 1 APPLIC EACH EYE ×2 (08:32→20:49)
[2023-04-12 08:45] LABS: Cholesterol 153 mg/dL (0-200); HDL Direct 48 mg/dL; Triglycerides 128 mg/dL (<150)
[2023-04-12 08:47] LABS: Barbiturate Screen Urine Negative (Negative); Benzodiazepines Screen Urine Negative (Negative)
[2023-04-12 08:52] LABS: Cannabinoid Screen Urine Negative (Negative); Cocaine Screen Urine Negative (Negative); Methadone Screen Urine Negative (Negative); Opiate Screen Urine Negative (Negative); Phencyclidine Screen Urine Negative (Negative)
[2023-04-12 08:57] LABS: LDL Cholesterol Direct 94 mg/dL
[2023-04-12 09:14] LABS: Amphetamine Screen Urine Positive (Negative)
--- NOTE | 2023-04-12 09:43 | WPDCNINT ---
Assessment and Plan Assessment and plan (1) ST elevation [place] (STEMI): Code(s): I21.3 - ST elevation (STEMI) myocardial infarction of unspecified site Status: Acute Assessment and Plan: Patient presented with retrosternal chest pain, not associated with any other symptoms. EKG showed inferior ST elevations. He was taken to cardiac lab assistant he was agitated and combative and was intubated in the cardiac lab assistant and placed on sedation. -he was found to have 100% occlusion of mid to distal RCA status post PTCA/PCI with FLAKITO x1 to mid to distal RCA. LV gram was deferred. -patient did have some reperfusion arrhythmias in the lab assistant -patient is allergic to aspirin, will require desensitization, if cannot be done here he will have to be transferred to a tertiary care center -currently on Integrilin infusion -continue Brilinta, statin per Cardiology (2) Acute respiratory failure: Code(s): J96.00 - Acute respiratory failure, unspecified whether with hypoxia or hypercapnia Status: Acute Assessment and Plan: Patient was combative and agitated in the cardiac catheterization lab. Was intubated for angiogram procedure -chest x-ray reviewed -will order ABGs -currently sedated on propofol, will discontinue fentanyl Versed infusion -will wean sedation in a.m. and evaluate for extubation (3) Amphetamine abuse: Code(s): F15.10 - Other stimulant abuse, uncomplicated Status: Acute Assessment and Plan: urine tox screen was positive for amphetamines (4) Tobacco abuse: Code(s): Z72.0 - Tobacco use Status: Acute Assessment and Plan: Will counselling psychologist patient with sees off the breathing machine Plan DVT prophylaxis: Integrilin infusion, was cardiac catheterization Stress ulcer prophylaxis: Protonix Nutrition: NPO Code Status: Full code Critical Care Time Spent: 44 minutes Due to a high probability of clinically significant, life threatening deterioration, the patient required my highest level of preparedness to intervene emergently and I personally spent this critical care time directly and personally managing the patient. This critical care time included obtaining a history; examining the patient; pulse oximetry; ordering and review of studies; arranging urgent treatment with development of a management plan; evaluation of patient's response to treatment; frequent reassessment; and discussions with other providers. It was exclusive of separately billable procedures and treating other patients and teaching time. Please see Assessment and Plan section and the rest of the note for further information on patient assessment and treatment This dictation may have been done utilizing a voice recognition system. Attempts have been made to correct errors. However, there may be uncorrected grammatical, spelling, and recognitions errors present. Milk Drying Machine Operator Consult Note Consult date: 04/12/23 Reason for consult: Chest pain, Inferior STEMI status post PTCA/PCI with FLAKITO x1 to mid-distal RCA which was 100% occluded HPI: Wood Lainez is a 43 year old male with past medical history of amphetamine abuse and tobacco infuse presented the ED in the early hours of 04/12/2023 with complains of substernal chest pain, nonradiating. Not associated diaphoresis, vomiting on exertion. He did admit to take methamphetamine earlier in the day. EKG sent via the ambulance service showed possible inferior STEMI, repeat EKG did not show a STEMI in the ER. And the EKG done later in the ER did show inferior KS and patient was taken for angiogram, status post PTCA/PCI with FLAKITO x1 to mid-distal RCA which was 100% occluded. LVEDP was 28 mmHg, LV gram was deferred. Patient is allergic to aspirin, so the aircraft machinist going to continue the Integrilin infusion. Patient did receive Brilinta. Will have to be desensitized to aspirin, will have to check with pharmacy if they do that here, If not, will have to be transferred to
[2023-04-12 10:20] LABS: Hemoglobin A1C 5.6 % (<5.7)
[2023-04-12] MEDS: PERFLUTREN LIPID MICROSPHERES 1.5 ML VIAL DILUTED TO 10 ML TOTAL VOLUME IV PUSH (10:50)
[2023-04-12 11:27] LABS: MRSA (PCR) NOT DETECTED (NOT DETECTE)
[2023-04-12] MEDS: PANTOPRAZOLE SODIUM IV 40 MG VIAL IV PUSH (12:34)
[2023-04-12 12:36] LABS: Alveolar/Arterial O2 Gradient 204.1 mmHg; Base Excess ABG -1.9 mEq/l (+/-2.0); Fractional Inspired Oxygen 50 %; HCO3 ABG 23.7 mEq/l (22.0-26.0); Oxygen Content ABG 21.4 %vol (16.0-22.0); Oxygen Saturation ABG 97.5 % (95.0-100.0); Oxyhemoglobin 96.5 % THb (90.0-100.0); PCO2 ABG 43.3 mmHg (35.0-45.0); PO2 ABG 103.7 mmHg (80.0-100.0); PO2 FiO2 Ratio Arterial Blood 2.07 %; Total Hemoglobin 15.7 g/dL (12.0-18.0); pH ABG 7.356 (7.350-7.450)
[2023-04-12 12:38] LABS: Arterial Blood Gas Ventilator rate 18 /MIN; Device VENTILATOR; Modified Allen's Test Pass; Site Drawn LEFT RADIAL
[2023-04-12 12:39] LABS: Arterial Blood Gas PEEP 5 cmH2O; Arterial Blood Gas Tidal Volume 450 ml; Arterial Blood Gas Vent Mode CMV
--- NOTE | 2023-04-12 12:57 | IVDEFINITY ---
Prior to administration of IV Definity the patient was educated on the risks and benefits of the imaging enhancing agent including potential adverse side effects. The patient verbalized understanding. Allergies were verified. No exclusion criteria were identified and at least one of the following inclusion criteria were met: 1) physician request, 2) patient technically difficult to image (per the [place] [employer] guidelines of two or more segments not discernable within the apical view), or 3) questionable left ventricular function. ?
--- NOTE | 2023-04-12 13:09 | PM.PNCARD ---
Progress Note: A&P Assessment and Plan (1) ST elevation [place] (STEMI): Code(s): I21.3 - ST elevation (STEMI) myocardial infarction of unspecified site Status: Acute Plan This is a 43-year-old man with acute ST-elevation NV of the inferior wall treated emergently in the middle of the night with PCI to the right coronary artery with a good angiographic result. Unfortunately he is a methamphetamine abusing patient who had to be intubated because of combative behavior in the cardiac catheterization lab. In addition to this she is aspirin allergic and requires aspirin desensitization. We will contact the patient transfer line at [place] to see if he can be transferred there for that purpose. Leonel Alcazar MD [facility] Subjective Date/time seen: Date of service: 04/12/23 13:09 Interval history: Follow-up visit in this 43-year-old man with: Acute ST-elevation inferior wall NV presenting with total occlusion of the mid right coronary artery. Patient underwent emergency percutaneous revascularization which was angiographically successful in the middle of the night using a drug-eluting stent to the RCA. Large caliber stent with a good angiographic result. Patient also was a gentleman who unfortunately has a history of illicit drug abuse with methamphetamine in became very combative and impossible to control in the cardiac catheterization lab and so he was intubated and sedated so that PCI could be safely performed. He is now in the ICU sedated and on valve ventilator support. He has a history of aspirin allergy with urticaria Exam Const: General: comfortable and no acute distress Other: Well-developed well-nourished white male appears stated age sedated on ventilator support HENMT: Mouth: Yes moist mucous membranes Eyes: Sclera: sclerae normal Neck: Neck: supple and no JVD Other: Carotid pulses unremarkable Resp: Effort & Inspection: normal respiratory effort Auscultation: clear to auscultation bilaterally Cardio: Rate: regular rate Rhythm: regular rhythm Other: No murmur no gallop GI: GI Palp: Yes Soft to palpation Auscultation: normal bowel sounds Urinary Catheter: Urinary Catheter: patent and draining Skin: General skin exam: normal color Neuro: Other: Sedated on ventilator support Extrem: Other: Good perfusion, no edema small hematoma in the right groin without bruit Objective Data Vital Signs Vital Signs: Vital Signs - 24 hr 04/12/23 03:22 04/12/23 03:32 04/12/23 03:33 Temperature 36.4 C Pulse Rate 61 97 64 Respiratory Rate 20 15 Blood Pressure 140/87 141/91 H Pulse Oximetry 99 100 Oxygen Delivery Fraction of Inspired Oxygen 04/12/23 04:50 04/12/23 04:58 04/12/23 07:44 Temperature Pulse Rate 71 132 H Respiratory Rate 17 Blood Pressure 145/76 H Pulse Oximetry 98 99 100 Oxygen Delivery Room Air Mechanical Ventilation Fraction of Inspired Oxygen 50 04/12/23 08:18 04/12/23 07:05 04/12/23 08:00 Temperature Pulse Rate 82 78 83 Respiratory Rate 18 18 Blood Pressure 151/86 H Pulse Oximetry 96 97 Oxygen Delivery Mechanical Ventilation Fraction of Inspired Oxygen 50 04/12/23 07:30 04/12/23 09:00 04/12/23 09:59 Temperature 35.9 C L 35.9 C L 35.7 C L Pulse Rate 81 82 Respiratory Rate 18 18 Blood Pressure 138/80 Pulse Oximetry 95 94 Oxygen Delivery Fraction of Inspired Oxygen 04/12/23 10:00 04/12/23 11:22 04/12/23 11:00 Temperature 35.7 C L 36.5 C Pulse Rate 86 98 98 Respiratory Rate 18 18 Blood Pressure 136/84 149/84 H Pulse Oximetry 97 98 98 Oxygen Delivery Mechanical Ventilation Fraction of Inspired Oxygen 50 04/12/23 12:00 04/12/23 12:45 Temperature 36.9 C Pulse Rate 101 H Respiratory Rate 18 Blood Pressure 145/94 H Pulse Oximetry 98 Oxygen Delivery Mechanical Ventilation Fraction of Inspired Oxygen 40 Intake/Output Intake/Output: Intake & Output
--- NOTE | 2023-04-12 13:49 | PC.NURSE ---
Spoke with [facility] transfer line. Current vital signs and height/weight requested. They will call us with a bed when available.
[2023-04-12] MEDS: PROPOFOL IV EMULSION 100 ML 14.51 MG IV CONT (17:29)
[2023-04-12] MEDS: TICAGRELOR 90 MG TABLET PO (20:49)
--- NOTE | 2023-04-12 21:47 | PC.NURSE ---
[facility] transfer center updated, still awaiting bed placement.
[2023-04-13] VITALS (27 sets, daily range): BP systolic 99–141; BP diastolic 56–89; PULSE 74–111; RESP 13–25; TEMP 36.4–38.4; O2SAT 93–100
[2023-04-13] MEDS: PROPOFOL IV EMULSION 100 ML 16.93 MG IV CONT (00:16)
[2023-04-13] MEDS: FENTANYL 2,500MCG/NS250ML(*CRX 2,500 MCG/250 ML BAG 15 MCG IV CONT (03:15)
[2023-04-13] MEDS: EPTIFIBATIDE 0.75 MG/ML 75 MG/100 ML VIAL 12.9 MG IV CONT ×3 (04:25→20:12)
[2023-04-13 05:25] LABS: Basophils Absolute Auto 0.1 K/mm3 (0.0-0.1); Basophils Percent Auto 0.5 % (0.2-1.2); Eosinophils Absolute Auto 0.2 K/mm3 (0-0.3); Eosinophils Percent Auto 1.2 % (0-4.4); Hematocrit 48.8 % (42.0-52.0); Hemoglobin 15.3 g/dL (14.0-18.0); Immature Granulocyte Percent A 0.6 % (0-0.5); Lymphocytes Absolute Auto 3.78 K/mm3 (0.9-3.2); Lymphocytes Percent Auto 22.5 % (18.3-44.2); Mean Corpuscular HGB Conc 31.4 g/dl (32-36); Mean Corpuscular Hemoglobin 30.5 pg (26-34); Mean Corpuscular Volume 97.4 fl (80-100); Mean Platelet Volume 10.4 fl (7.4-10.4); Monocytes Absolute Auto 1.7 K/mm3 (0.1-0.6); Monocytes Percent Auto 10.3 % (2.6-8.5); Neutrophils Absolute Auto 10.9 K/mm3 (1.3-6.7); Neutrophils Percent Auto 64.9 % (45.5-73.1); Platelet Count Result 255 k/mm3 (150-375); Red Blood Count 5.01 M/mm3 (4.6-6.20); Red Cell Distribution Width 13.2 % (11.5-14.5); White Blood Count 16.8 K/mm3 (4.5-10.0)
[2023-04-13 05:37] LABS: Alanine Aminotransferase 50 U/L (6-50); Albumin Level 3.7 g/dL (3.5-5.1); Alkaline Phosphatase 87 U/L (38-126); Anion Gap 3 mmol/L (8-16); Aspartate Amino Transferase 248 U/L (17-59); Bilirubin,Total 1.1 mg/dL (0.2-1.3); Blood Urea Nitrogen 21 mg/dL (9-20); Calcium 8.5 mg/dL (8.4-10.2); Carbon Dioxide 27 mmol/L (22-30); Chloride 107 mmol/L (98-107); Estimated CRCL calculation 66 ml/min; Estimated Glomerular Filt Rate > 60; Glucose 85 mg/dL (65-110); Magnesium 2.2 mg/dL (1.6-2.3); Phosphorus 4.1 mg/dL (2.5-4.5); Potassium 4.3 mmol/L (3.4-5.0); Sodium 137 mmol/L (137-145)
[2023-04-13 06:08] LABS: Alveolar/Arterial O2 Gradient 92.9 mmHg; Base Excess ABG -1.1 mEq/l (+/-2.0); Carboxyhemoglobin 0.3 % THb (0-2.0); Fractional Inspired Oxygen 30 %; HCO3 ABG 24.4 mEq/l (22.0-26.0); Methemoglobin ABG 0.2 %THb (0-1.5); Oxygen Content ABG 20.8 %vol (16.0-22.0); Oxygen Saturation ABG 93.7 % (95.0-100.0); Oxyhemoglobin 93.3 % THb (90.0-100.0); PCO2 ABG 43.1 mmHg (35.0-45.0); PO2 ABG 70.4 mmHg (80.0-100.0); PO2 FiO2 Ratio Arterial Blood 2.35 %; Reduced Hemoglobin 6.2 %THb (0-5.0); Total Hemoglobin 15.9 g/dL (12.0-18.0)
[2023-04-13 06:09] LABS: Device VENTILATOR; Site Drawn RIGHT BRACHIAL
[2023-04-13 06:10] LABS: Arterial Blood Gas PEEP 5 cmH2O; Arterial Blood Gas Tidal Volume 450 ml; Arterial Blood Gas Vent Mode CMV; Arterial Blood Gas Ventilator rate 18 /MIN
[2023-04-13] MEDS: PROPOFOL IV EMULSION 100 ML 14.51 MG IV CONT (06:30)
[2023-04-13] MEDS: PANTOPRAZOLE SODIUM IV 40 MG VIAL IV PUSH (07:59)
[2023-04-13] MEDS: ATORVASTATIN 40 MG TABLET 80 MG PO (08:01)
[2023-04-13] MEDS: TICAGRELOR 90 MG TABLET PO ×2 (08:01→21:08)
[2023-04-13] MEDS: MINERAL OIL/WHITE PETROLATUM OINTMENT 1 APPLIC EACH EYE (08:01)
--- NOTE | 2023-04-13 09:02 | WPDINTPN ---
Progress Note: A&P Assessment and Plan (1) ST elevation CO (STEMI): Code(s): I21.3 - ST elevation (STEMI) myocardial infarction of unspecified site Status: Acute Assessment and Plan: Patient presented with retrosternal chest pain, not associated with any other symptoms. EKG showed inferior ST elevations. He was taken to cardiac director labor standards he was agitated and combative and was intubated in the cardiac director labor standards and placed on sedation. -he was found to have 100% occlusion of mid to distal RCA status post PTCA/PCI with FLAKITO x1 to mid to distal RCA. LV gram was deferred. -patient did have some reperfusion arrhythmias in the director labor standards -patient is allergic to aspirin, will require desensitization, if cannot be done here is going to be transferred to a tertiary care center -currently on Integrilin infusion -continue Brilinta, statin per Cardiology Echo ?1. Patient intubated, definity contrast used to improve exam quality. ? 2. Normal left ventricular size and overall systolic function with ejection fraction 55-60%. ? 3. Akinesis of the inferior segment. ? 4. Normal appearing aortic and mitral valve. ? 5. No pericardial effusion. (2) Acute respiratory failure: Code(s): J96.00 - Acute respiratory failure, unspecified whether with hypoxia or hypercapnia Status: Acute Assessment and Plan: Patient was combative and agitated in the cardiac catheterization lab. Was intubated for angiogram procedure -chest x-ray and ABG reviewed -currently sedated on propofol, will discontinue fentanyl Versed infusion -will plan for sedation holiday and weaning trial (3) Amphetamine abuse: Code(s): F15.10 - Other stimulant abuse, uncomplicated Status: Acute Assessment and Plan: urine tox screen was positive for amphetamines (4) Tobacco abuse: Code(s): Z72.0 - Tobacco use Status: Acute Assessment and Plan: Will career technical counselor patient with sees off the breathing machine (5) Abnormal TSH: Code(s): R79.89 - Other specified abnormal findings of blood chemistry Status: Acute Assessment and Plan: Check free T3 and T4 Plan DVT prophylaxis: Integrilin infusion, was cardiac catheterization Stress ulcer prophylaxis: Protonix Nutrition: NPO Code Status: Full code Critical Care Time Spent: 30 minutes Due to a high probability of clinically significant, life threatening deterioration, the patient required my highest level of preparedness to intervene emergently and I personally spent this critical care time directly and personally managing the patient. This critical care time included obtaining a history; examining the patient; pulse oximetry; ordering and review of studies; arranging urgent treatment with development of a management plan; evaluation of patient's response to treatment; frequent reassessment; and discussions with other providers. It was exclusive of separately billable procedures and treating other patients and teaching time. Please see Assessment and Plan section and the rest of the note for further information on patient assessment and treatment This dictation may have been done utilizing a voice recognition system. Attempts have been made to correct errors. However, there may be uncorrected grammatical, spelling, and recognitions errors present. Subjective Date/time seen: 04/13/23 Overnight events reviewed. Low-grade fever Continues to be on mechanical ventilation 40% FiO2 Continues to be sedated Other vitals acceptable Review of Systems Review of Systems: ROS unobtainable: Yes unobtainable due to endotracheal tube and unobtainable due to mental status Exam Narrative: General: intubated and sedated HEENT:? Pupils are equal and reactive, sclera is clear Neck:? supple Respiratory:? clear to auscultation bilaterally, no wheezing, adequate air entry Cardiac:? Si S2 normal, normal rate and rhythm Abdomen:? soft, non tender, not distended, normoact
[2023-04-13 09:20] LABS: Free T4 Free Thyroxine 1.64 ng/mL (0.78-2.19)
[2023-04-13 09:24] LABS: Alveolar/Arterial O2 Gradient 165.4 mmHg; Base Excess ABG -1.2 mEq/l (+/-2.0); Carboxyhemoglobin 0.2 % THb (0-2.0); Fractional Inspired Oxygen 40 %; HCO3 ABG 24.4 mEq/l (22.0-26.0); Methemoglobin ABG 0.3 %THb (0-1.5); Modified Allen's Test Pass; Oxygen Content ABG 21.4 %vol (16.0-22.0); Oxygen Saturation ABG 93.4 % (95.0-100.0); Oxyhemoglobin 92.2 % THb (90.0-100.0); PCO2 ABG 43.7 mmHg (35.0-45.0); PO2 ABG 69.5 mmHg (80.0-100.0); PO2 FiO2 Ratio Arterial Blood 1.74 %; Reduced Hemoglobin 7.3 %THb (0-5.0); Site Drawn LEFT RADIAL; Total Hemoglobin 16.5 g/dL (12.0-18.0); pH ABG 7.364 (7.350-7.450)
[2023-04-13 09:25] LABS: Arterial Blood Gas Vent Mode SPONTANEOUS; Device VENTILATOR
[2023-04-13 09:26] LABS: Arterial Blood Gas PEEP 5 cmH2O; Arterial Blood Gas Pressure Support 5 cmH2O
--- NOTE | 2023-04-13 10:38 | PM.PNCARD ---
Progress Note: A&P Assessment and Plan (1) ST elevation AR (STEMI): Code(s): I21.3 - ST elevation (STEMI) myocardial infarction of unspecified site Status: Acute Assessment and Plan: Emergent cardiac catheterization showed 100% complete occlusion of the mid-distal RCA. During the diagnostic portion of the case, patient kept thrashing around, despite having 3 straps across his legs and both hands in wrist restraints, he kept moving his arms and legs around, at times requiring 2 animal laboratory technician staff members to hold him down. It was difficult to proceed with cardiac cath in this situation. Given this, we called ER for intubation. Patient intubated and OG tube placed by Dr. Callahan. We then proceeded with PCI of the RCA, with successfully PCI of the mid-distal RCA with a 4.0mm x 35mm FLAKITO. LVEDP is 28mmHg. Admit to ICU. Patient extubated on 04/13. Patient has ASA allergy (hives), therefore, we did not give him any ASA. He will need to undergo ASA desensitization. As this cannot be done at [facility], he is awaiting transfer to [place] (has been accepted, awaiting a bed). Since we cannot give him ASA at this time, will do Integrilin drip for now. Loaded with Brilinta 180mg x 1 in the ER (prior to intubation). Continue Brilinta 90mg BID. Started Atorvastatin 80mg, continue. LDL is 94. Echocardiogram post PCI shows normal LV size and function with LVEF 550-60%, akinesis of the inferior wall, no significant valvular disease. Will start low-dose Toprol given NSVT noted on tele overnight. (2) Amphetamine abuse: Code(s): F15.10 - Other stimulant abuse, uncomplicated Status: Acute Assessment and Plan: Used meth prior to admission on 04/11. (3) Tobacco abuse: Code(s): Z72.0 - Tobacco use Status: Acute Assessment and Plan: Audio/Video Engineer on smoking cessation. Subjective Date/time seen: 04/13/23 10:38 Interval history: Reason for visit: STEMI HPI: This is a 43 year old male with tobacco use who presented with chest pain. He was initially an EMS STEMI alert, however, EKG upon arrival to [place] ER did not show STEMI. EKG showed sinus rhythm with anterolateral ST depressions. Posterior EKG was obtained, which did not show STEMI, therefore, close serial EKGs were obtained, which then did show inferior ST elevations. Therefore, animal laboratory technician activated for emergent cardiac catheterization. Patient had admitted to meth use earlier. Reports allergy to ASA - reportedly gets hives. Other history could not be obtained as patient intubated during cardiac catheterization. History obtained from ER team. Date of service 04/12: Acute ST-elevation inferior wall AR presenting with total occlusion of the mid right coronary artery.? Patient underwent emergency percutaneous revascularization which was angiographically successful in the middle of the night using a drug-eluting stent to the RCA.? Large caliber stent with a good angiographic result.? Patient also was a gentleman who unfortunately has a history of illicit drug abuse with methamphetamine in became very combative and impossible to control in the cardiac catheterization lab and so he was intubated and sedated so that PCI could be safely performed.? He is now in the ICU sedated and on valve ventilator support.? He has a history of aspirin allergy with urticaria Date of service 04/13: Extubated this morning and doing well on 2L of oxygen on nasal cannula. Telemetry with sinus rhythm with occasional brief NSVT overnight. Exam Const: General: no acute distress Eyes: General: appearance normal, both eyes and all related structures Sclera: sclerae normal Resp: Effort & Inspection: normal respiratory effort Auscultation: clear to auscultation bilaterally Cardio: Rate: regular rate Rhythm: regular rhythm Heart sounds: no murmurs Skin: General skin exam: normal color Objective Data Vital Signs Vital Signs: Vital Signs - 24 hr 04/12/23 11:22 04/12/23 11:00 04/12/23
[2023-04-13] MEDS: ACETAMINOPHEN 325 MG TABLET 650 MG PO (11:04)
[2023-04-13] MEDS: METOPROLOL SUCCINATE EXT REL 25 MG TABCR PO (11:05)
--- NOTE | 2023-04-13 11:28 | PCNFU ---
Nutrition Follow-Up Complete: Increased protein energy needs related to mechanical ventilation as evidenced by NPO Goal: Meet estimated protein energy needs Patient is progressing towards goal. We will continue current goal. Pt current nutrition is Clear liquids . Last recorded weight is 75 kg, down from 80.6 kg on admit. Bowel Motility:+BM reported 04/12 Labs Reviewed:BUN 21 Meds Noted: Lipitor, Brilinta, Toprol Skin: WNL Additional Notes: Patient has been extubated. Diet order has advanced to clear liquids for lunch and heart healthy for dinner meal. Ensure Clear will be on clear liquid tray providing an additional 240 kcals and 8 gms protein. Agree with diet orders. Monitor diet orders, plan of care, meds, weights, labs Following daily in ICU rounds, reassess every 5 days.
--- NOTE | 2023-04-13 20:20 | PC.NURSE ---
[employer] called to verify patient is still an inpatient at [facility].
--- NOTE | 2023-04-13 21:15 | PC.NURSE ---
[facility] environment coordinator called - current vitals provided. No bed available at this time.
[2023-04-14] VITALS (19 sets, daily range): BP systolic 120–151; BP diastolic 65–80; PULSE 68–104; RESP 17–24; TEMP 36.9–37.6; O2SAT 94–97
[2023-04-14 04:14] LABS: Hematocrit 42.8 % (42.0-52.0); Hemoglobin 13.9 g/dL (14.0-18.0); Mean Corpuscular HGB Conc 32.5 g/dl (32-36); Mean Corpuscular Hemoglobin 30.1 pg (26-34); Mean Corpuscular Volume 92.6 fl (80-100); Mean Platelet Volume 10.1 fl (7.4-10.4); Platelet Count Result 247 k/mm3 (150-375); Red Blood Count 4.62 M/mm3 (4.6-6.20); Red Cell Distribution Width 13.1 % (11.5-14.5)
[2023-04-14 04:25] LABS: Alanine Aminotransferase 36 U/L (6-50); Albumin Level 3.3 g/dL (3.5-5.1); Alkaline Phosphatase 78 U/L (38-126); Anion Gap 1 mmol/L (8-16); Aspartate Amino Transferase 88 U/L (17-59); Bilirubin,Total 1.2 mg/dL (0.2-1.3); Blood Urea Nitrogen 18 mg/dL (9-20); Calcium 8.4 mg/dL (8.4-10.2); Carbon Dioxide 29 mmol/L (22-30); Chloride 102 mmol/L (98-107); Estimated CRCL calculation 86 ml/min; Estimated Glomerular Filt Rate > 60; Glucose 128 mg/dL (65-110); Magnesium 2.1 mg/dL (1.6-2.3); Potassium 3.4 mmol/L (3.4-5.0); Sodium 132 mmol/L (137-145); Triglycerides 93 mg/dL (<150)
[2023-04-14 05:02] LABS: Alveolar/Arterial O2 Gradient 50.8 mmHg; Carboxyhemoglobin 1.1 % THb (0-2.0); Fractional Inspired Oxygen 21 %; HCO3 ABG 25.7 mEq/l (22.0-26.0); Methemoglobin ABG 0.3 %THb (0-1.5); Oxygen Content ABG 18.7 %vol (16.0-22.0); Oxygen Saturation ABG 90.1 % (95.0-100.0); Oxyhemoglobin 89.1 % THb (90.0-100.0); PCO2 ABG 37.1 mmHg (35.0-45.0); PO2 ABG 54.5 mmHg (80.0-100.0); Reduced Hemoglobin 9.5 %THb (0-5.0); pH ABG 7.458 (7.350-7.450)
[2023-04-14 05:03] LABS: Device ROOM AIR; Modified Allen's Test Pass; Site Drawn RIGHT RADIAL
[2023-04-14] MEDS: TICAGRELOR 90 MG TABLET PO ×2 (08:56→20:51)
[2023-04-14] MEDS: METOPROLOL SUCCINATE EXT REL 25 MG TABCR PO (08:56)
[2023-04-14] MEDS: PANTOPRAZOLE SODIUM IV 40 MG VIAL IV PUSH (08:56)
[2023-04-14] MEDS: ATORVASTATIN 40 MG TABLET 80 MG PO (08:56)
[2023-04-14] MEDS: EPTIFIBATIDE 0.75 MG/ML 75 MG/100 ML VIAL 12.9 MG IV CONT ×2 (09:58→17:45)
[2023-04-14 11:55] LABS: Glucose Point of Care 139 mg/dl (65-105)
--- NOTE | 2023-04-14 12:08 | PM.PNCARD ---
Progress Note: A&P Assessment and Plan (1) ST elevation [place] (STEMI): Code(s): I21.3 - ST elevation (STEMI) myocardial infarction of unspecified site Status: Acute Assessment and Plan: Emergent cardiac catheterization showed 100% complete occlusion of the mid-distal RCA. During the diagnostic portion of the case, patient kept thrashing around, despite having 3 straps across his legs and both hands in wrist restraints, he kept moving his arms and legs around, at times requiring 2 dentures lab technician staff members to hold him down. It was difficult to proceed with cardiac cath in this situation. Given this, we called ER for intubation. Patient intubated and OG tube placed by Dr. Callahan. We then proceeded with PCI of the RCA, with successfully PCI of the mid-distal RCA with a 4.0mm x 35mm FLAKITO. LVEDP is 28mmHg. Patient extubated on 04/13. Patient has ASA allergy (hives), therefore, we did not give him any ASA. He will need to undergo ASA desensitization. As this cannot be done at [facility], he is awaiting transfer to [place] (has been accepted, awaiting a bed). Since we cannot give him ASA at this time, will do Integrilin drip for now. Loaded with Brilinta 180mg x 1 in the ER (prior to intubation). Continue Brilinta 90mg BID. Started Atorvastatin 80mg, continue. LDL is 94. Echocardiogram post PCI shows normal LV size and function with LVEF 550-60%, akinesis of the inferior wall, no significant valvular disease. Started low-dose Toprol given NSVT noted on tele. (2) Leukocytosis: Code(s): D72.829 - Elevated white blood cell count, unspecified Status: Acute Assessment and Plan: Has a rising WBC up to 19 now. Has been coughing. CXR this AM with minimal haziness in right lung base. Possible pneumonia? Will consult Hospitalist for possible pneumonia. Given rising WBC, will also check blood cultures. (3) Amphetamine abuse: Code(s): F15.10 - Other stimulant abuse, uncomplicated Status: Acute Assessment and Plan: Used meth prior to admission on 04/11. (4) Tobacco abuse: Code(s): Z72.0 - Tobacco use Status: Acute Assessment and Plan: Airframe Technician on smoking cessation. Subjective Date/time seen: 04/14/23 12:08 Interval history: Reason for visit: STEMI HPI: This is a 43 year old male with tobacco use who presented with chest pain. He was initially an EMS STEMI alert, however, EKG upon arrival to [place] ER did not show STEMI. EKG showed sinus rhythm with anterolateral ST depressions. Posterior EKG was obtained, which did not show STEMI, therefore, close serial EKGs were obtained, which then did show inferior ST elevations. Therefore, dentures lab technician activated for emergent cardiac catheterization. Patient had admitted to meth use earlier. Reports allergy to ASA - reportedly gets hives. Other history could not be obtained as patient intubated during cardiac catheterization. History obtained from ER team. Date of service 04/12: Acute ST-elevation inferior wall [place] presenting with total occlusion of the mid right coronary artery.? Patient underwent emergency percutaneous revascularization which was angiographically successful in the middle of the night using a drug-eluting stent to the RCA.? Large caliber stent with a good angiographic result.? Patient also was a gentleman who unfortunately has a history of illicit drug abuse with methamphetamine in became very combative and impossible to control in the cardiac catheterization lab and so he was intubated and sedated so that PCI could be safely performed.? He is now in the ICU sedated and on valve ventilator support.? He has a history of aspirin allergy with urticaria Date of service 04/13: Extubated this morning and doing well on 2L of oxygen on nasal cannula. Telemetry with sinus rhythm with occasional brief NSVT overnight. Date of service 04/14: No acute events overnight. Denies chest pain, shortness of breath. Is coughing. No sputum production with it. Otherwi
--- NOTE | 2023-04-14 13:50 | PM.IMCN ---
Assessment and Plan Assessment and plan (1) ST elevation [place] (STEMI): Qualifiers: Involved coronary artery: right coronary artery Qualified Code(s): I21.11 - ST elevation (STEMI) myocardial infarction involving right coronary artery Code(s): I21.3 - ST elevation (STEMI) myocardial infarction of unspecified site Status: Acute Assessment and Plan: - emergent cardiac cath on 04/12 showed: 1. Left Main: The left main coronary artery is widely patent without any significant obstructive disease. 2. LAD: The proximal LAD has mild disease. Remainder of the LAD has luminal irregularities. 3. LCX: The proximal-mid LCX has mild diffuse disease. Remainder of LCX has luminal irregularities. OM branch has mild disease in the mid portion. 4. RCA: The RCA is the dominant vessel. Mild disease in the proximal and mid portions. The mid to distal RCA is 100% occluded. - started on Brilinta 180 mg x1, continued as 90 mg BID - started on Atorvastatin 80 mg daily - unable to start ASA due to allergy. Transfer in place to [place] for aspirin desensitization - cannot be performed here. Awaiting bed. - nSVT noted on tele, cardiology initiated metoprolol 25 mg daily - Echo (04/12/23): Normal LV size, EF 55-60%. Akinesis of the inferior segment. Normal appearing AV and MV. No pericardial effusion. (2) Pneumonia: Qualifiers: Laterality: right Lung location: lower lobe of lung Pneumonia type: due to unspecified organism Qualified Code(s): J18.9 - Pneumonia, unspecified organism Code(s): J18.9 - Pneumonia, unspecified organism Status: Acute Assessment and Plan: - new onset of cough - noted on XYZ - CXR: Minimal haziness right lung base, nonspecific. Correlate for minimal pulmonary edema/atelectasis, or possibly developing pneumonia. - WBC 10.6 -> 16.8 -> 19.0 - febrile on 04/13 with peak temp of 101.1 - no current tachycardia or tachypnea - blood cultures pending - given recent intubation and current admission has been greater than 48 hours, will treat for HAP. Start cefepime. - MRSA PCR negative. - add viral PCR and sputum culture if obtainable (3) Amphetamine abuse: Code(s): F15.10 - Other stimulant abuse, uncomplicated Status: Acute Assessment and Plan: - last use on 04/11/23 - no current agitation - counseled on cessation (4) Tobacco abuse: Code(s): Z72.0 - Tobacco use Status: Acute Assessment and Plan: - counseled on cessation Plan STEMI with emergent cath on 04/12 with 100% occlusion of the mid to distal RCA. Successful stent placement. Currently awaiting transfer to [facility] for ASA desensitization. Current c/f hospital-acquired PNA. Started on cefepime. Diet: heart healthy GI Prophylaxis: pantoprazole IVP QAM DVT Prophylaxis: SCDs Lines: pIV Code Status: Full Code HPI Date of Consult Consult date: 04/14/23 Requesting Physician: Dale Luciano MD Primary Care Provider: Alex Clark DO Consult Narrative Reason for consult: Possible PNA Narrative: 43 y/o M presented to the ED on 04/12/23 with sudden onset of chest pain with PMH of meth use and tobacco use. Patient presented to [place] ED on 04/12/23 around 0315 with sudden onset of midsternal CP earlier that morning at 0200. Patient was brought in by EMS and STEMI alert was activated in the field. Initial EKG showed sinus bradycardia with a rate of 55, inferior ST segment elevations consistent with injury pattern. Repeat EKG showed inferior ST elevations. quality lab technician was emergently activated for cardiac catheterization. However, while in laborer filter plant patient became agitated and had previously admitted to meth use earlier that evening. Meter Readers Supervisor was unable to proceed with case until patient was intubated. Cardiac catheterization showed the 100% occlusion of the mid to distal RCA with subsequent stent placement. Patient was then admitted to the ICU. Extubated successfully
[2023-04-14] MEDS: CEFEPIME 2 GM/NS 50 ML 2 GM/50 ML BAG IVPB ×2 (14:13→20:51)
[2023-04-14 15:37] LABS: Influenza A QL RT-PCR Negative (Negative); Influenza B QL RT-PCR Negative (Negative); RSV RNA, RT-PCR Negative (Negative); SARS-CoV-2 RNA PCR Negative (Negative)
[2023-04-14] MEDS: IPRATROPIUM 0.5 MG/ALBUTEROL SULFATE 2.5 MG AMPUL.NEB 3 ML INHALATION ×2 (17:47→21:03)
[2023-04-14] MEDS: IPRATROPIUM 0.5 MG/ALBUTEROL SULFATE 2.5 MG AMPUL.NEB 3 ML (17:48)
[2023-04-15] VITALS (26 sets, daily range): BP systolic 141–156; BP diastolic 54–87; PULSE 74–99; RESP 18–24; TEMP 35.9–37; O2SAT 95–97
[2023-04-15] MEDS: EPTIFIBATIDE 0.75 MG/ML 75 MG/100 ML VIAL 12.9 MG IV CONT (01:31)
[2023-04-15] MEDS: IPRATROPIUM 0.5 MG/ALBUTEROL SULFATE 2.5 MG AMPUL.NEB 3 ML INHALATION ×4 (03:00→20:26)
[2023-04-15 04:34] LABS: Hematocrit 41.9 % (42.0-52.0); Hemoglobin 13.9 g/dL (14.0-18.0); Mean Corpuscular HGB Conc 33.2 g/dl (32-36); Mean Corpuscular Hemoglobin 30.3 pg (26-34); Mean Corpuscular Volume 91.3 fl (80-100); Mean Platelet Volume 10.3 fl (7.4-10.4); Platelet Count Result 245 k/mm3 (150-375); Red Blood Count 4.59 M/mm3 (4.6-6.20); Red Cell Distribution Width 12.8 % (11.5-14.5); White Blood Count 16.2 K/mm3 (4.5-10.0)
[2023-04-15 04:43] LABS: Alanine Aminotransferase 29 U/L (6-50); Albumin Level 3.4 g/dL (3.5-5.1); Alkaline Phosphatase 77 U/L (38-126); Anion Gap 4 mmol/L (8-16); Aspartate Amino Transferase 52 U/L (17-59); Bilirubin,Total 0.7 mg/dL (0.2-1.3); Blood Urea Nitrogen 14 mg/dL (9-20); Calcium 8.5 mg/dL (8.4-10.2); Carbon Dioxide 27 mmol/L (22-30); Chloride 104 mmol/L (98-107); Estimated CRCL calculation 86 ml/min; Estimated Glomerular Filt Rate > 60; Glucose 115 mg/dL (65-110); Magnesium 2.2 mg/dL (1.6-2.3); Potassium 3.9 mmol/L (3.4-5.0); Sodium 135 mmol/L (137-145)
[2023-04-15] MEDS: CEFEPIME 2 GM/NS 50 ML 2 GM/50 ML BAG IVPB ×3 (06:32→20:44)
[2023-04-15] MEDS: TICAGRELOR 90 MG TABLET PO ×2 (10:09→20:44)
[2023-04-15] MEDS: METOPROLOL SUCCINATE EXT REL 25 MG TABCR PO (10:09)
[2023-04-15] MEDS: ATORVASTATIN 40 MG TABLET 80 MG PO (10:09)
[2023-04-15] MEDS: PANTOPRAZOLE SODIUM IV 40 MG VIAL IV PUSH (10:09)
--- NOTE | 2023-04-15 10:16 | PM.PNCARD ---
Progress Note: A&P Assessment and Plan (1) ST elevation [place] (STEMI): Qualifiers: Involved coronary artery: right coronary artery Qualified Code(s): I21.11 - ST elevation (STEMI) myocardial infarction involving right coronary artery Code(s): I21.3 - ST elevation (STEMI) myocardial infarction of unspecified site Status: Acute Assessment and Plan: Emergent cardiac catheterization 04/12/2023 showed 100% complete occlusion of the mid-distal RCA. During the diagnostic portion of the case, patient kept thrashing around, despite having 3 straps across his legs and both hands in wrist restraints, he kept moving his arms and legs around, at times requiring 2 dental laboratory supervisor staff members to hold him down. It was difficult to proceed with cardiac cath in this situation. Given this, we called ER for intubation. Patient intubated by Dr. Callahan. We then proceeded with PCI of the RCA, with successfully PCI of the mid-distal RCA with a 4.0mm x 35mm FLAKITO. LVEDP is 28mmHg. Patient extubated on 04/13. Patient has ASA allergy (hives), therefore, we did not give him any ASA. He will need to undergo ASA desensitization. As this cannot be done at [facility], he is awaiting transfer to [place] (has been accepted, awaiting a bed). Since we cannot give him ASA at this time, we had him on Integrilin drip. Since it has been a few days, I will stop the Integrilin drip today. Loaded with Brilinta 180mg x 1 in the ER (prior to intubation). Continue Brilinta 90mg BID. Started Atorvastatin 80mg, continue. LDL is 94. Echocardiogram post PCI shows normal LV size and function with LVEF 55-60%, akinesis of the inferior wall, no significant valvular disease. Started low-dose Toprol given NSVT noted on tele. No further recurrence of NSVT. (2) Leukocytosis: Code(s): D72.829 - Elevated white blood cell count, unspecified Status: Acute Assessment and Plan: Had a rising WBC up to 19. Fevers on 04/13. Had been coughing. CXR with minimal haziness in right lung base. Possible pneumonia?Consulted Hospitalist for possible pneumonia. He was started on Cefepime for HAP. Given rising WBC, we also checked blood cultures. Thus far, no growth on blood cultures. WBC is improving today. No further fevers. Management of antibiotics as per Hospitalist. (3) Amphetamine abuse: Code(s): F15.10 - Other stimulant abuse, uncomplicated Status: Acute Assessment and Plan: Used meth prior to admission on 04/11. (4) Tobacco abuse: Code(s): Z72.0 - Tobacco use Status: Acute Assessment and Plan: Limousine Driver on smoking cessation. Subjective Date/time seen: 04/15/23 10:16 Interval history: Reason for visit: STEMI HPI: This is a 43 year old male with tobacco use who presented with chest pain. He was initially an EMS STEMI alert, however, EKG upon arrival to [place] ER did not show STEMI. EKG showed sinus rhythm with anterolateral ST depressions. Posterior EKG was obtained, which did not show STEMI, therefore, close serial EKGs were obtained, which then did show inferior ST elevations. Therefore, dental laboratory supervisor activated for emergent cardiac catheterization. Patient had admitted to meth use earlier. Reports allergy to ASA - reportedly gets hives. Other history could not be obtained as patient intubated during cardiac catheterization. History obtained from ER team. Date of service 04/12: Acute ST-elevation inferior wall [place] presenting with total occlusion of the mid right coronary artery.? Patient underwent emergency percutaneous revascularization which was angiographically successful in the middle of the night using a drug-eluting stent to the RCA.? Large caliber stent with a good angiographic result.? Patient also was a gentleman who unfortunately has a history of illicit drug abuse with methamphetamine in became very combative and impossible to control in the cardiac catheterization lab and so he was intubated and sedated so that PCI could be safe
--- NOTE | 2023-04-15 16:33 | PM.IMPN ---
Progress Note: A&P Assessment and Plan (1) ST elevation VA (STEMI): Qualifiers: Involved coronary artery: right coronary artery Qualified Code(s): I21.11 - ST elevation (STEMI) myocardial infarction involving right coronary artery Code(s): I21.3 - ST elevation (STEMI) myocardial infarction of unspecified site Status: Acute Assessment and Plan: - emergent cardiac cath on 04/12 showed: 1. Left Main: The left main coronary artery is widely patent without any significant obstructive disease. 2. LAD: The proximal LAD has mild disease. Remainder of the LAD has luminal irregularities. 3. LCX: The proximal-mid LCX has mild diffuse disease. Remainder of LCX has luminal irregularities. OM branch has mild disease in the mid portion. 4. RCA: The RCA is the dominant vessel. Mild disease in the proximal and mid portions. The mid to distal RCA is 100% occluded. - started on Brilinta 180 mg x1, continued as 90 mg BID - started on Atorvastatin 80 mg daily - unable to start ASA due to allergy. Transfer in place to [place] for aspirin desensitization - cannot be performed here. Awaiting bed. - nSVT noted on tele, cardiology initiated metoprolol 25 mg daily - Echo (04/12/23): Normal LV size, EF 55-60%. Akinesis of the inferior segment. Normal appearing AV and MV. No pericardial effusion. (2) Pneumonia: Qualifiers: Pneumonia type: due to unspecified organism Laterality: right Lung location: lower lobe of lung Qualified Code(s): J18.9 - Pneumonia, unspecified organism Code(s): J18.9 - Pneumonia, unspecified organism Status: Acute Assessment and Plan: - new onset of cough - noted on XYZ - CXR: Minimal haziness right lung base, nonspecific. Correlate for minimal pulmonary edema/atelectasis, or possibly developing pneumonia. - WBC 10.6 -> 16.8 -> 19.0 - febrile on 04/13 with peak temp of 101.1 - no current tachycardia or tachypnea - blood cultures pending - given recent intubation and current admission has been greater than 48 hours, will treat for HAP. Start cefepime. - MRSA PCR negative. - add viral PCR and sputum culture if obtainable (3) Amphetamine abuse: Code(s): F15.10 - Other stimulant abuse, uncomplicated Status: Acute Assessment and Plan: - last use on 04/11/23 - no current agitation - counseled on cessation (4) Tobacco abuse: Code(s): Z72.0 - Tobacco use Status: Acute Assessment and Plan: - counseled on cessation, 3 minutes Plan STEMI with emergent cath on 04/12 with 100% occlusion of the mid to distal RCA. Successful stent placement. Currently awaiting transfer to [facility] for ASA desensitization. Current c/f hospital-acquired PNA. Started on cefepime. Diet: heart healthy GI Prophylaxis: pantoprazole IVP QAM DVT Prophylaxis: SCDs Lines: pIV Code Status: Full Code Subjective Date/time seen: 04/15/23 16:33 Interval history: Reason for visit: STEMI HPI: This is a 43 year old male with tobacco use who presented with chest pain. He was initially an EMS STEMI alert, however, EKG upon arrival to [place] [facility] did not show STEMI. EKG showed sinus rhythm with anterolateral ST depressions. Posterior EKG was obtained, which did not show STEMI, therefore, close serial EKGs were obtained, which then did show inferior ST elevations. Therefore, corn lab technician activated for emergent cardiac catheterization. Patient had admitted to meth use earlier. Reports allergy to ASA - reportedly gets hives. Other history could not be obtained as patient intubated during cardiac catheterization. History obtained from ER team. 04/12: Acute ST-elevation inferior wall VA presenting with total occlusion of the mid right coronary artery.? Patient underwent emergency percutaneous revascularization which was angiographically successful in the middle of the night using a drug-eluting stent to the RCA.? Large caliber stent with a good angiographic result.? He has a hist
--- NOTE | 2023-04-15 20:05 | PC.NURSE ---
Called report to SHEREE Adams at [facility]
--- NOTE | 2023-05-10 12:23 | PM.TDS ---
Transfer Discharge Sum: Prov Provider Date of admission: 04/12/23 04:44 Primary care physician: Alex Clark DO Admitting clinician: Dale Luciano MD Attending physician on admission: Dale Luciano Consults: 04/12/23 Cardiopulmonary Rehabilitation Consult Routine Comment: Consult Plan: Evaluate for Eligibility 04/14/23 Consult to Physician Routine Comment: Consulting Provider: Darshana Jerry Reason for consultation: Possible Pneumonia Has provider been notified: Yes Attending physician on discharge: Dale Luciano Discharging clinician: Dale Luciano Anticipated date of transfer: 04/16/23 Receiving physician/facility: [facility] DS: Admitting Diagnosis Discharge Date 04/15/[address] elevation LA DS: Discharge Diagnosis Discharge Diagnosis (1) ST elevation LA (STEMI): Qualifiers: Involved coronary artery: right coronary artery Qualified Code(s): I21.11 - ST elevation (STEMI) myocardial infarction involving right coronary artery Code(s): I21.3 - ST elevation (STEMI) myocardial infarction of unspecified site Status: Acute Plan Transfer for aspirin desensitization Transfer Discharge Sum: Med Medications Active and Home Medications: Home Medications meloxicam 15 mg tablet 15 mg PO DAILY #30 tabs 03/01/23 [Rx Confirmed 04/23/23] aspirin 81 mg tablet,delayed release (Adult Low Dose Aspirin) 81 mg PO DAILY 04/19/23 [History Confirmed 04/23/23] atorvastatin 80 mg tablet 80 mg PO DAILY 04/19/23 [History Confirmed 04/23/23] ticagrelor 90 mg tablet (Brilinta) 90 mg PO Q12H 04/19/23 [History Confirmed 04/23/23] metoprolol succinate 50 mg tablet,extended release 24 hr 50 mg PO DAILY #90 tabs 04/23/23 [Rx Confirmed 04/23/23] Transfer Discharge Sum: Hosp Hospital Course Hospital course: Wood Lainez is a 43 year old male without prior history of coronary artery disease who is admitted here with inferior ST-elevation LA. the patient was extremely agitated in the cardiac pathology laboratory technologist and had to be sedated by anesthesia and intubated so that emergency PCI could be performed by Dr. Luciano. The patient then underwent successful RCA revascularization using a drug-eluting stent with a good angiographic result. Details of that are in the separately dictated cardiac pathology laboratory technologist note. The patient provided history of significant aspirin allergy with urticaria. Recommendation was made to transfer the patient for aspirin desensitization since we do not have a desensitization protocol at this hospital. He was maintained in the ICU until the time of transfer on anti-platelet therapy with Brilinta as well as on intravenous Integrilin. Time Spent with Patient Time attestation: Total time spent providing and/or coordinating transfer services: Exam Const: General: cooperative and no acute distress HENMT: Head: normal to inspection Face and sinus: normal facial exam Mouth: Yes Normal oral and palatal mucosa present Eyes: Sclera: sclerae normal Neck: Neck: normal visual inspection Resp: Effort & Inspection: normal respiratory effort Auscultation: clear to auscultation bilaterally Cardio: Other: PMI nondisplaced in of normal activity first and second heart sounds normal no gallop no murmur Skin: General skin exam: normal color Neuro: Cognition (Neuro): normal cognition Extrem: General: normal to inspection Other: No edema, normal perfusion
== END 2023-04-15 23:00 | disposition short-term general hospital (02) | DRG 174 ==
LOC: ANHED 03:29 → ANHICU 04:48 → ANHIMU 04-14 18:20
PROVIDERS: Internal Medicine; Student in an Organized Health Care Education/Training Program; Admitting Provider Internal Medicine; Emergency Provider Emergency Medicine; PCP Family Medicine; Referring Provider Emergency Medicine; Visit Provider Specialist
PROC: 4A023N7 Measurement of Cardiac Sampling and Pressure, Left Heart, Percutaneous Approach (ICD-10-PCS; CPT 93452; principal; 2023-04-12 03:30)
PROC: 027034Z Dilation of Coronary Artery, One Artery with Drug-eluting Intraluminal Device, Percutaneous Approach (ICD-10-PCS; 2023-04-12 03:30)
PROC: 027034Z Dilation of Coronary Artery, One Artery with Drug-eluting Intraluminal Device, Percutaneous Approach (ICD-10-PCS; 2023-04-12 03:30)
PROC: 027034Z Dilation of Coronary Artery, One Artery with Drug-eluting Intraluminal Device, Percutaneous Approach (ICD-10-PCS; 2023-04-12 03:30)
DX: I21.11 ST elevation (STEMI) myocardial infarction involving right coronary artery (principal); F17.210 Nicotine dependence, cigarettes, uncomplicated; F15.10 Other stimulant abuse, uncomplicated; Z20.822 Contact with and (suspected) exposure to COVID-19; I47.20 Ventricular tachycardia, unspecified; J18.9 Pneumonia, unspecified organism; Y95 Nosocomial condition; D72.829 Elevated white blood cell count, unspecified
CPT/HCPCS: 36415; 36600; 71045; 80053; 80061; 80307; 82375; 82805; 82948; 83036; 83050; 83735; 84100; 84439; 84443; 84478; 84480; 84484; 85025; 85027; 85610; 85730; 86850; 86900; 86901; 87040; 87070; 87205; 87637; 87641; 92978; 93005; 93458; 94002; 94003; 94640; 96374; 99291; A9270; C1725; C1753; C1760; C1769; C1874; C1887; C1894; C8929; C9113; C9606; G0269; J0583; J0692; J1327; J1644; J2060; J2250; J2371; J2704; J3010; J7030; J7040; Q9957